=== PATIENT | male | born 1965 | race Caucasian/White ===

== ENCOUNTER 2018-02-02 15:19 | Emergency (ER) | payer MEDICAID, SELFPAY ==
[2018-02-02 15:20] VITALS: BP 128/72; PULSE 82; RESP 16; TEMP 36.7; O2SAT 100
--- NOTE | 2018-02-02 15:44 | W.ED.GENAD ---
Discharge Plan Disposition Patient Disposition: HOME Condition: Stable Discharge Details Chief Complaint: Cellulitis Clinical Impression: Diabetic infection of right foot Primary Care Provider: Liz Birmingham ED Provider: Raymond Chow Home Meds and New Rx's Prescriptions: New amoxicillin-pot clavulanate [Augmentin] 875-125 mg tablet 1 tab PO BID 14 Days Qty: 28 RF: 0 Continue aspirin [Aspirin Low Dose] 81 MG tablet,delayed release (DR/EC) 1 tab PO DAILY RF: 0 blood sugar diagnostic [OneTouch Ultra Test] 1 EACH strip 1 strip Miscellaneous 6-8XDAILY Qty: 600 RF: 0 insulin aspart U-100 [Novolog Flexpen U-100 Insulin] 100 UNIT/1 ML insulin pen SQ DIRECTED Qty: 5 RF: 12 insulin glargine [Lantus U-100 Insulin] 100 UNIT/1 ML solution 80 unit SQ HS Qty: 8 RF: 12 sulfamethoxazole-trimethoprim [Bactrim] 400-80 mg Tablet 1 tab PO BID 14 Days Qty: 28 RF: 0 metformin [Glucophage] 1,000 MG tablet 1 tab PO DAILY Qty: 180 RF: 4 pen needle, diabetic 1 EACH needle 1 ea Sub-Q 8X/DAILY Qty: 300 RF: 12 insulin syringe-needle U-100 [BD Insulin Syringe] 1 EACH syringe 1 ea Sub-Q HS Qty: 200 RF: 0 Discharge Instructions Instructions: Diabetic Foot Ulcers (ED) Discharge Data Discharge Physician: Raymond Chwo Medical Decision Making MDM Narrative Medical decision making narrative: 52 yo male with hx of T2DM comes in with right foot rash. He states it started a week or so ago and was but on bactrim at [facility]. He wasn't taking his diabetes meds for months prior to this and was represcribed lantus by [facility]. He was going to see his pcp today but states he was 15 minutes late and they wouldn't see him and so he was referred here for eval of his foot. Denies pain or fevers. He has ulcers with 2cm surrounding ertyeham, no tunneling or deep ulcers so doubt osteo at this time. I am going to add him on augmentin and continue his bactrim, and gave return precautions. I will prescribe his lantus and metformin for 2 weeks and will have him placed on our f/u list to see his pcp. I educated importance of taking his meds as prescribed as if he continues to have uncontrolled DM he could lose his feet Differential Diagnosis diabetic foot infection, om, cellulitis HPI General Mode of arrival: ambulatory. Date/Time Provider Initiated Documentation: 02/02/18 15:28. Limitations to Documentation: no limitations. Information obtained by: patient. History of Present Illness 52 year old M presents to the emergency department with the chief complaint of right foot redness, described as moderate, with intensity rated at 4. Quality is described as aching, and is localized to the right and lower extremity. Patient reports no radiation. Patient started experiencing this week(s) (1) and it has been constant. No relieving factors improve symptom(s), No exacerbating factors reported . Patient notes no other symptoms.. Patient did receive the following treatments prior to arrival, none and other (bactrim) Related Data Home Medications Medication Instructions Recorded Confirmed aspirin [Aspirin Low Dose] 1 tab PO DAILY tab 09/04/12 02/02/18 blood sugar diagnostic [OneTouch #600 strip 12/25/13 Ultra Test] insulin aspart U-100 [Novolog 0 SQ DIRECTED #5 pen 09/29/16 Flexpen U-100 Insulin] Previous Rx's Medication Instructions Recorded amoxicillin-pot clavulanate 1 tab PO BID 14 Days #28 tab 02/02/18 [Augmentin] insulin glargine [Lantus U-100 80 unit SQ HS #8 vial 02/02/18 Insulin] insulin syringe-needle U-100 [BD #200 syringe NS 02/02/18 Insulin Syringe] metformin [Glucophage] 1 tab PO DAILY #180 tab 02/02/18 pen needle, diabetic #300 pkg NS 02/02/18 sulfamethoxazole-trimethoprim 1 tab PO BID 14 Days #28 tab NS 02/02/18 [Bactrim] Allergies Allergy/AdvReac Type Severity Reaction Status Date / Time No Known Allergies Allergy Unverified 08/15/17 20:07 General Stated Complaint: Cellulitis BRIAN: 3 Review of Systems Review of Systems All systems reviewed & are unremarkable except as noted in HPI and below Constitutional Denies chills, Denies fever(s) and Denies weakness Eyes Patient Denies loss of vision ENT Denies change in voice Cardiovascular Denies chest pain and Denies dyspnea Respiratory Denies dyspnea Gastrointestinal Denies abdominal pain, Denies nausea and Denies vomiting Genitourinary Denies dysuria Musculoskeletal Denies joint swelling Integumentary/Breasts Reports rash Neurologic Denies loss of vision and Denies weakness Psychiatric Denies depression Endocrine Denies cold intolerance and Denies heat intolerance Allergic/Immunologic Reports urticaria PFSH Social History Smoking/Tobacco Use Status: Former Tobacco Use how long ago did patient quit smokin10/15/13- QUIT 12 YRS AGO Surgical History Arthroplasty of knee Repair of umbilical hernia Exam Const General: no acute distress Orientation: alert HENMT Head: normal to inspection Ears: external ears normal General nose exam: external nose normal Mouth: moist mucous membranes Eyes General: appearance normal, both eyes and all related structures Neck Neck: normal visual inspection Resp Effort & Inspection: normal respiratory effort and able to speak in complete sentences Cardio Rate: regular rate Skin General skin exam: no rashes or lesions noted Neuro General: alert and oriented x3 Extrem General: full ROM, normal capillary refill and other (3 superficial ulcers, one on the plantar surface 1cm in diameter, and several smaller ones on toes II-VII, no tunneling or bone felt on probe test) Psych Mental Status: mental status grossly normal Course Vital Signs Temperature 36.7 C 02/02/18 15:20 Pulse 82 02/02/18 15:20 Respiratory Rate 16 02/02/18 15:20 Blood Pressure 128/72 02/02/18 15:20 Pulse Oximetry 100 02/02/18 15:20 Temperature 36.7 C 02/02/18 15:20 Pulse 82 02/02/18 15:20 Respiratory Rate 16 02/02/18 15:20 Blood Pressure 128/72 02/02/18 15:20 Pulse Oximetry 100 02/02/18 15:20
--- NOTE | 2018-02-02 15:49 | ED.GENADUL_ITS ---
Discharge Plan Disposition Patient Disposition: HOME Condition: Stable Discharge Details Chief Complaint: Cellulitis Clinical Impression: Diabetic infection of right foot Primary Care Provider: Liz Birmingham ED Provider: Raymond Chow Home Meds and New Rx's Prescriptions: New amoxicillin-pot clavulanate [Augmentin] 875-125 mg tablet 1 tab PO BID 14 Days Qty: 28 RF: 0 Continue aspirin [Aspirin Low Dose] 81 MG tablet,delayed release (DR/EC) 1 tab PO DAILY RF: 0 blood sugar diagnostic [OneTouch Ultra Test] 1 EACH strip 1 strip Miscellaneous 6-8XDAILY Qty: 600 RF: 0 insulin aspart U-100 [Novolog Flexpen U-100 Insulin] 100 UNIT/1 ML insulin pen SQ DIRECTED Qty: 5 RF: 12 insulin glargine [Lantus U-100 Insulin] 100 UNIT/1 ML solution 80 unit SQ HS Qty: 8 RF: 12 sulfamethoxazole-trimethoprim [Bactrim] 400-80 mg Tablet 1 tab PO BID 14 Days Qty: 28 RF: 0 metformin [Glucophage] 1,000 MG tablet 1 tab PO DAILY Qty: 180 RF: 4 pen needle, diabetic 1 EACH needle 1 ea Sub-Q 8X/DAILY Qty: 300 RF: 12 insulin syringe-needle U-100 [BD Insulin Syringe] 1 EACH syringe 1 ea Sub-Q HS Qty: 200 RF: 0 Discharge Instructions Instructions: Diabetic Foot Ulcers (ED) Discharge Data Discharge Physician: Raymond Chow Medical Decision Making MDM Narrative Medical decision making narrative: 52 yo male with hx of T2DM comes in with right foot rash. He states it started a week or so ago and was but on bactrim at [facility]. He wasn't taking his diabetes meds for months prior to this and was represcribed lantus by [facility]. He was going to see his pcp today but states he was 15 minutes late and they wouldn't see him and so he was referred here for eval of his foot. Denies pain or fevers. He has ulcers with 2cm surrounding ertyeham, no tunneling or deep ulcers so doubt osteo at this time. I am going to add him on augmentin and continue his bactrim, and gave return precautions. I will prescribe his lantus and metformin for 2 weeks and will have him placed on our f/u list to see his pcp. I educated importance of taking his meds as prescribed as if he continues to have uncontrolled DM he could lose his feet Differential Diagnosis diabetic foot infection, om, cellulitis HPI General Mode of arrival: ambulatory . Date/Time Provider Initiated Documentation: 02/02/18 15:28 . Limitations to Documentation: no limitations . Information obtained by: patient . History of Present Illness 52 year old M presents to the emergency department with the chief complaint of right foot redness, described as moderate, with intensity rated at 4. Quality is described as aching, and is localized to the right and lower extremity. Patient reports no radiation. Patient started experiencing this week(s) (1) and it has been constant. No relieving factors improve symptom(s ), No exacerbating factors reported . Patient notes no other symptoms.. Patient did receive the following treatments prior to arrival, none and other ( bactrim) Related Data Home Medications Medication Instructions Recorded Confirmed aspirin [Aspirin Low Dose] 1 tab PO DAILY tab 09/04/12 02/02/18 blood sugar diagnostic [OneTouch #600 strip 12/25/13 Ultra Test] insulin aspart U-100 [Novolog 0 SQ DIRECTED #5 pen 09/29/16 Flexpen U-100 Insulin] Previous Rx's Medication Instructions Recorded amoxicillin-pot clavulanate 1 tab PO BID 14 Days #28 tab 02/02/18 [Augmentin] insulin glargine [Lantus U-100 80 unit SQ HS #8 vial 02/02/18 Insulin] insulin syringe-needle U-100 [BD #200 syringe NS 02/02/18 Insulin Syringe] metformin [Glucophage] 1 tab PO DAILY #180 tab 02/02/18 pen needle, diabetic #300 pkg NS 02/02/18 sulfamethoxazole-trimethoprim 1 tab PO BID 14 Days #28 tab NS 02/02/18 [Bactrim] Allergies Allergy/AdvReac Type Severity Reaction Status Date / Time No Known Allergies Allergy Unverified 08/15/17 20:07 General Stated Complaint: Cellulitis BRIAN: 3 Review of Systems Review of Systems All systems reviewed & are unremarkable except as noted in HPI and below Constitutional Denies chills, Denies fever(s) and Denies weakness Eyes Patient Denies loss of vision ENT Denies change in voice Cardiovascular Denies chest pain and Denies dyspnea Respiratory Denies dyspnea Gastrointestinal Denies abdominal pain, Denies nausea and Denies vomiting Genitourinary Denies dysuria Musculoskeletal Denies joint swelling Integumentary/Breasts Reports rash Neurologic Denies loss of vision and Denies weakness Psychiatric Denies depression Endocrine Denies cold intolerance and Denies heat intolerance Allergic/Immunologic Reports urticaria PFSH Social History Smoking/Tobacco Use Status: Former Tobacco Use how long ago did patient quit smokin10/15/13- QUIT 12 YRS AGO Surgical History Arthroplasty of knee Repair of umbilical hernia Exam Const General: no acute distress Orientation: alert HENMT Head: normal to inspection Ears: external ears normal General nose exam: external nose normal Mouth: moist mucous membranes Eyes General: appearance normal, both eyes and all related structures Neck Neck: normal visual inspection Resp Effort & Inspection: normal respiratory effort and able to speak in complete sentences Cardio Rate: regular rate Skin General skin exam: no rashes or lesions noted Neuro General: alert and oriented x3 Extrem General: full ROM, normal capillary refill and other (3 superficial ulcers, one on the plantar surface 1cm in diameter, and several smaller ones on toes II-VII , no tunneling or bone felt on probe test) Psych Mental Status: mental status grossly normal Course Vital Signs Temperature 36.7 C 02/02/18 15:20 Pulse 82 02/02/18 15:20 Respiratory Rate 16 02/02/18 15:20 Blood Pressure 128/72 02/02/18 15:20 Pulse Oximetry 100 02/02/18 15:20 Temperature 36.7 C 02/02/18 15:20 Pulse 82 02/02/18 15:20 Respiratory Rate 16 02/02/18 15:20 Blood Pressure 128/72 02/02/18 15:20 Pulse Oximetry 100 02/02/18 15:20
[2018-02-02 16:06] VITALS: BP 128/80; PULSE 88; RESP 18; TEMP 36.8; O2SAT 99
--- NOTE | 2018-02-03 08:49 | PDOC.ERCMPRO ---
Care Management Progress Note 02/03/18-Pt seen on 02/02/18 for diabetic right foot infection by Dr. Stone Chow. Referral faxed to [facility] as Dr. Tereza Birmingham is Pt's PCP for f/u within one week.
== END 2018-02-02 16:05 | disposition home or self-care (01) ==
LOC: ER 16:02
PROVIDERS: Emergency Provider Emergency Medicine; PCP Family Medicine
DX: E11.621 Type 2 diabetes mellitus with foot ulcer; Z79.4 Long term (current) use of insulin
CPT/HCPCS: 99283

== ENCOUNTER 2018-02-06 12:52 | Inpatient (IN) | payer MEDICAID, SELFPAY ==
[2018-02-06 12:59] VITALS: BP 132/80; PULSE 89; RESP 18; O2SAT 98
[2018-02-06 13:59] LABS: Abs Immature Grans 0.02 k/cumm (0.0-0.09); Absolute Basophil Count 0.02 k/cumm (0.0-0.2); Absolute Eosinophil Count 0.15 k/cumm (0.0-0.7); Absolute Lymphocyte Count 1.42 k/cumm (1.2-3.4); Absolute Monocyte Count 0.53 k/cumm (0.11-0.7); Absolute Neutrophil Count 4.03 k/cumm (1.2-6.7); Basophils % 0.3; Eosinophils % 2.4; HCT 40.9 % (40.0-50.0); HGB 14.5 g/dL (13.5-17.5); Immature Grans % 0.3; Mean Corp. HGB Concentration 35.5 g/dL (32.0-36.0); Mean Corpuscular Hemoglobin 31.7 pg (27.0-33.0); Mean Corpuscular Volume 89.5 fL (80-95); Mean Platelet Volume 9.9 fL (8.0-11.0); Monocytes % 8.6; Neutrophils % 65.4; Platelet Count 191 x1000/uL (130-400); RBC 4.57 m/cumm (4.50-6.00); RBC Distribution Width 12.4 % (11.8-14.1); White Blood Cell Count 6.17 k/cumm (4.4-10.8)
[2018-02-06 14:16] LABS: ALT 24 U/L (12-78); AST 10 U/L (15-37); Albumin 3.4 g/dL (3.4-5.0); Alkaline Phosphatase 186 U/L (46-116); Anion Gap 8.5 mmol/L (3-11); BUN 13 mg/dL (7-18); Bilirubin, Total 0.4 mg/dL (0.2-1.0); CO2 29.5 mmol/L (21.0-32.0); CREATININE 0.72 mg/dL (0.70-1.30); Calcium 9.5 mg/dL (8.5-10.1); Chloride 99 mmol/L (98-107); Glucose 335 mg/dL (70-100); Potassium 4.2 mmol/L (3.5-5.1); Sodium 137 mmol/L (136-145); Total Protein 7.3 g/dL (6.4-8.2)
[2018-02-06] MEDS: MEROPENEM 1 GM in Normal Saline 100 ML IVPB (15:14)
--- NOTE | 2018-02-06 15:15 | NUR.NOTE ---
Dorsalis pedis and posterior tibial pulses intact with Doppler. ED provider notified Nursing Note:
--- NOTE | 2018-02-06 15:26 | DI.RAD_ITS ---
SYMPTOMS/DIAGNOSIS: NECROTIC TOES, EVALUATE FOR OSTEOMYELITIS LEFT FOOT: Two views. No destructive or erosive changes are seen in the toes to suggest osteomyelitis. The bones are intact. No acute fracture or dislocation is seen. The joint spaces appear fairly well maintained. Vascular calcifications are seen in the soft tissues. No radiopaque foreign bodies are seen. There does appear to be soft tissue swelling of the forefoot. IMPRESSION: No radiographic evidence to suggest osteomyelitis. Followup as clinically appropriate.
--- NOTE | 2018-02-06 15:35 | ED.GENADUL_ITS ---
Discharge Plan Disposition Patient Disposition: [facility] INPATIENT Discharge Details Chief Complaint: Cellulitis Clinical Impression: Diabetic foot infection Reason For Visit: DIABETIC FOOT INFECTION Admit Date/Time: 02/06/18 15:50 Admit Provider: Augustine Rogers Attending Provider: Augustine Rogers Primary Care Provider: Liz Birmingham ED Provider: Taylor Greene Discharge Data Discharge Date/Time-TO BE ENTERED AT DEPARTURE: 02/06/18 17:06 Medical Decision Making Lena Kramer is a 52 y/o man with history of insulin-dependent diabetes presenting to the emergency department with several weeks of wounds to his left toes worsening despite outpatient antibiotics on Bactrim and Augmentin. On exam patient is overall well and nontoxic-appearing with chronic wounds with necrosis to the left toes 2 through 4. Pulses of the left foot are dopplerable , and the foot is warm and well perfused. Exam/history not consistent with necrotizing fasciitis, sepsis. Concern for possible osteomyelitis and diabetic foot wounds requiring debridement and IV antibiotics. Plan for x-ray, screening labs, IV antibiotics, admission. Clinical Impression: diabetic foot infection Dispostion: [facility] inpatient Medical Records Medical records reviewed: Yes I reviewed the patient's medical records. Imaging Data Radiologic Study: Attestation: I personally reviewed and interpreted this imaging study as follows: Radiologist's impression: LEFT FOOT: Two views. No destructive or erosive changes are seen in the toes to suggest osteomyelitis. The bones are intact. No acute fracture or dislocation is seen. The joint spaces appear fairly well maintained. Vascular calcifications are seen in the soft tissues. No radiopaque foreign bodies are seen. There does appear to be soft tissue swelling of the forefoot. IMPRESSION: No radiographic evidence to suggest osteomyelitis. Followup as clinically appropriate. Lab Data Lab results reviewed: Yes I reviewed the patient's lab results. HPI General Mode of arrival: ambulatory . Date/Time Provider Initiated Documentation: 02/06/18 13:22 . Limitations to Documentation: no limitations . Information obtained by: patient, RN notes reviewed and old records reviewed . HPI Narrative: Lena Kramer is a 52-year-old man with a history of insulin dependent diabetes presenting to the emergency department with diabetic ulcers to the toes. Patient reports that he noticed skin changes 2-3 weeks ago of his left toes. He was started on Bactrim as an outpatient for this. On 02/02/18 he was seen here in the emergency department for progression of the skin lesions, and was switched from Bactrim to Augmentin. Patient was seen by his PCP today who noticed that wounds have continued to progress despite outpatient treatment , and he was sent to the emergency department. Patient notes that he has minimal sensation of the area at baseline, but does have some pain in the 3 toes that are affected. He reports that he has felt more tired over the past few weeks but otherwise denies any systemic symptoms. No other pain, no fever, no nausea/vomiting/diarrhea, no rash, no shortness of breath, no cough. Normal appetite. No recent travel. Related Data Home Medications Medication Instructions Recorded Confirmed aspirin [Aspirin Low Dose] 1 tab PO DAILY tab 09/04/12 02/06/18 blood sugar diagnostic [OneTouch #600 strip 12/25/13 02/06/18 Ultra Test] insulin aspart U-100 [Novolog 0 SQ DIRECTED #5 pen 09/29/16 02/06/18 Flexpen U-100 Insulin] amoxicillin-pot clavulanate 1 tab PO BID 14 Days #28 tab 02/02/18 02/06/18 [Augmentin] insulin glargine [Lantus U-100 80 unit SQ HS #8 vial 02/02/18 02/06/18 Insulin] insulin syringe-needle U-100 [BD #200 syringe NS 02/02/18 02/06/18 Insulin Syringe] metformin [Glucophage] 1 tab PO DAILY #180 tab 02/02/18 02/06/18 pen needle, diabetic #300 pkg NS 02/02/18 02/06/18 sulfamethoxazole-trimethoprim 1 tab PO BID 14 Days #28 tab NS 02/02/18 02/06/18 [Bactrim] Previous Rx's Medication Instructions Recorded amoxicillin-pot clavulanate 1 tab PO BID 14 Days #28 tab 02/02/18 [Augmentin] insulin glargine [Lantus U-100 80 unit SQ HS #8 vial 02/02/18 Insulin] insulin syringe-needle U-100 [BD #200 syringe NS 02/02/18 Insulin Syringe] metformin [Glucophage] 1 tab PO DAILY #180 tab 02/02/18 pen needle, diabetic #300 pkg NS 02/02/18 sulfamethoxazole-trimethoprim 1 tab PO BID 14 Days #28 tab NS 02/02/18 [Bactrim] Allergies Allergy/AdvReac Type Severity Reaction Status Date / Time No Known Allergies Allergy Unverified 08/15/17 20:07 General Stated Complaint: Cellulitis BRIAN: 3 Review of Systems Review of Systems Constitutional: denies fevers Eyes: denies eye pain ENT: denies facial pain, dental pain, sore throat Cardiovascular: denies chest pain, edema Respiratory: denies SOB, cough GI: denies abdominal pain, vomiting, diarrhea : denies flank pain MSK: denies back pain, neck pain, arthralgias, myalgias Skin: denies rash, reports skin changes left toes Neuro: denies headaches, weakness Exam Narrative Exam Narrative: Constitutional: well and [id number], pleasant, conversing normally HENT: head atraumatic, normocephalic normal inspection, mucous membranes moist Eyes: conjunctiva normal, sclera normal, pupils 3mm b/l Neck: no stridor, normal ROM, trachea midline Chest: normal inspection Resp: normal work of breathing Cardio: normal rate, normal rhythm. Pulses dopplerable left foot, left foot is warm and well perfused Skin: warm, dry, normal color, no rash, left toes 2 through 4 with non-draining chronic wounds some areas of necrosis and 3-4 cm of erythema in the distal dorsal foot Neuro: alert, not altered, grossly non-focal, normal tone Ext: no edema Psych: normal mood, normal affect, normal behavior Course Vital Signs Pulse 89 02/06/18 12:59 Respiratory Rate 18 02/06/18 12:59 Blood Pressure 132/80 02/06/18 12:59 Pulse Oximetry 98 02/06/18 12:59 Temperature Source Temporal Artery Scan 02/06/18 12:59 Pulse 89 02/06/18 12:59 Respiratory Rate 18 02/06/18 12:59 Blood Pressure 132/80 02/06/18 12:59 Blood Pressure Position Sitting 02/06/18 12:59 Pulse Oximetry 98 02/06/18 12:59 Oxygen Delivery Method Room Air 02/06/18 12:59 Oxygen Flow Rate 0 02/06/18 12:59 Lab/Test Results Lab/Test Results: 02/06/18 14:55 Blood Blood Culture - Pending 02/06/18 13:47 Blood Blood Culture - Pending Laboratory Tests Range/Units 02/06/18 02/06/18 13:47 13:47 WBC (4.4-10.8) k/cumm 6.17 RBC (4.50-6.00) m/cumm 4.57 Hgb (13.5-17.5) g/dL 14.5 Hct (40.0-50.0) % 40.9 MCV (80-95) fL 89.5 MCH (27.0-33.0) pg 31.7 MCHC (32.0-36.0) g/dL 35.5 RDW (11.8-14.1) % 12.4 Plt Count (130-400) x1000/uL 191 MPV (8.0-11.0) fL 9.9 Immature Gran % 0.3 Neutrophils % 65.4 Lymphocytes % 23.0 Monocytes % 8.6 Eosinophils % 2.4 Basophils % 0.3 Absolute Neutrophils (1.2-6.7) k/cumm 4.03 Absolute Lymphocytes (1.2-3.4) k/cumm 1.42 Absolute Monocytes (0.11-0.7) k/cumm 0.53 Absolute Eosinophils (0.0-0.7) k/cumm 0.15 Absolute Basophils (0.0-0.2) k/cumm 0.02 Sodium (136-145) mmol/L 137 Potassium (3.5-5.1) mmol/L 4.2 Chloride (98-107) mmol/L 99 Carbon Dioxide (21.0-32.0) mmol/L 29.5 Anion Gap (3-11) mmol/L 8.5 BUN (7-18) mg/dL 13 Creatinine (0.70-1.30) mg/dL 0.72 Estimated GFR/1.73 m2 (mL/min/1.73m2) >= 60.00 Glucose (70-100) mg/dL 335 H Calcium (8.5-10.1) mg/dL 9.5 Total Bilirubin (0.2-1.0) mg/dL 0.4 AST (15-37) U/L 10 L ALT (12-78) U/L 24 Alkaline Phosphatase (46-116) U/L 186 H Total Protein (6.4-8.2) g/dL 7.3 Albumin (3.4-5.0) g/dL 3.4
--- NOTE | 2018-02-06 16:07 | HPE_ITS ---
Date of service: 02/06/18 Time of Service: 16:06 History of Present Illness Chief Complaint: Diabetic left foot ulceration Narrative: Lena is a 52-year-old gentleman with past medical history significant for insulin-dependent type 2 diabetes, hypertension, hyperlipidemia who presents to the emergency department today at [facility] with concerns regarding left foot infection. Symptoms began approximately 2 weeks ago when he noticed a blister to the great toe on the left foot. This is not particularly uncommon for him to develop blisters that then burst followed by prolonged healing. He frequently wears socks to bed and covered the blister with a piece of gauze. The following morning he took his time getting ready as he did not have to be at work until later that afternoon. Around noon time he removed his socks to take a shower and noticed that several blisters have erupted over the remaining toes on the left foot. He proceeded to go to work and on his way home stopped at [facility] where he was prescribed Bactrim. She took the Bactrim as prescribed, however on February 02, 2018 presented to the emergency department at [facility] with concerns regarding ongoing infection. He was prescribed Augmentin in addition to Bactrim. Additionally his diabetes medications had run out and he had no more refills, so Dr. Mujica he in the emergency room gave him a couple of weeks worth of medication. He has continued to take oral antibiotics as prescribed, however has not noticed any improvement in his left foot. Narrative: Lena is a 52-year-old gentleman with past medical history significant for insulin-dependent type 2 diabetes, hypertension, hyperlipidemia who presents to the emergency department today at [facility] with concerns regarding left foot infection. Symptoms began approximately 2 weeks ago when he noticed a blister to the great toe on the left foot. This is not particularly uncommon for him to develop blisters that then burst followed by prolonged healing. He frequently wears socks to bed and covered the blister with a piece of gauze. The following morning he took his time getting ready as he did not have to be at work until later that afternoon. Around noon time he removed his socks to take a shower and noticed that several blisters have erupted over the remaining toes on the left foot. He proceeded to go to work and on his way home stopped at [facility] where he was prescribed Bactrim. She took the Bactrim as prescribed, however on February 02, 2018 presented to the emergency department at [facility] with concerns regarding ongoing infection. He was prescribed Augmentin in addition to Bactrim. Additionally his diabetes medications had run out and he had no more refills, so Dr. Guanako dietz in the emergency room gave him a couple of weeks worth of medication. He has continued to take oral antibiotics as prescribed, however has not noticed any improvement in his left foot. Meds Home Medications Medication Instructions Recorded Confirmed Type aspirin [Aspirin Low Dose] 1 tab PO DAILY tab 09/04/12 02/06/18 History blood sugar diagnostic [OneTouch #600 strip 12/25/13 02/06/18 History Ultra Test] insulin aspart U-100 [Novolog 0 SQ DIRECTED #5 pen 09/29/16 02/06/18 History Flexpen U-100 Insulin] amoxicillin-pot clavulanate 1 tab PO BID 14 Days #28 tab 02/02/18 02/06/18 Rx [Augmentin] insulin glargine [Lantus U-100 80 unit SQ HS #8 vial 02/02/18 02/06/18 Rx Insulin] insulin syringe-needle U-100 [BD #200 syringe NS 02/02/18 02/06/18 Rx Insulin Syringe] metformin [Glucophage] 1 tab PO DAILY #180 tab 02/02/18 02/06/18 Rx pen needle, diabetic #300 pkg NS 02/02/18 02/06/18 Rx sulfamethoxazole-trimethoprim 1 tab PO BID 14 Days #28 tab NS 02/02/18 02/06/18 Rx [Bactrim] Allergies Allergy/AdvReac Type Severity Reaction Status Date / Time No Known Allergies Allergy Unverified 08/15/17 20:07 Results Labs : 02/06/18 13:47 02/06/18 13:47 Laboratory Results - last 24 hr 02/06/18 02/06/18 13:47 13:47 WBC 6.17 RBC 4.57 Hgb 14.5 Hct 40.9 MCV 89.5 MCH 31.7 MCHC 35.5 RDW 12.4 Plt Count 191 MPV 9.9 Immature Gran % 0.3 Neutrophils % 65.4 Lymphocytes % 23.0 Monocytes % 8.6 Eosinophils % 2.4 Basophils % 0.3 Absolute Neutrophils 4.03 Absolute Lymphocytes 1.42 Absolute Monocytes 0.53 Absolute Eosinophils 0.15 Absolute Basophils 0.02 Sodium 137 Potassium 4.2 Chloride 99 Carbon Dioxide 29.5 Anion Gap 8.5 BUN 13 Creatinine 0.72 Estimated GFR/1.73 m2 >= 60.00 Glucose 335 H Calcium 9.5 Total Bilirubin 0.4 AST 10 L ALT 24 Alkaline Phosphatase 186 H Total Protein 7.3 Albumin 3.4
[2018-02-06] MEDS: VANCOMYCIN 2,000 MG in Normal Saline 500 ML 250 MG IVPB (16:15)
[2018-02-06 16:40] VITALS: TEMP 36.7
[2018-02-06 17:00] VITALS: BP 137/82; PULSE 72; RESP 18; TEMP 36; O2SAT 98
--- NOTE | 2018-02-06 17:04 | HPE_ITS ---
Date of service: 02/06/18 Time of Service: 16:52 Assessment and Plan (1) Diabetic ulcer of left foot: Current visit: Yes Status: Acute Failed outpatient treatment with Bactrim and Augmentin. There are several areas of necrosis which will likely require surgical debridement. Podiatry consult. Will initiate IV antibiotics with meropenem and IV vancomycin , pharmacy to dose. Blood cultures pending. Repeat blood work in the morning. (2) Insulin dependent diabetes mellitus: Current visit: Yes Status: Chronic Diabetic diet. Continue Lantus 80 units subcu at at bedtime in addition to sliding scale NovoLog for meal coverage. Order placed for para educator. Poor compliance in recent months due to multiple missed appointments. (3) Hypertension: Current visit: Yes Status: Chronic Reportedly on lisinopril in the past, however this is not on his medication reconciliation. He would benefit from an TSERING inhibitor in terms of renal protection, however will hold off on reordering until we can verify his current medications (4) DVT prophylaxis: Current visit: Yes Status: Acute SC Lovenox History of Present Illness Chief Complaint: Left diabetic foot ulceration Narrative: Lena is a 52-year-old gentleman with past medical history significant for insulin-dependent type 2 diabetes, hypertension, hyperlipidemia who presents to the emergency department today at [facility] with concerns regarding left foot infection. Symptoms began approximately 2 weeks ago when he noticed a blister to the great toe on the left foot. This is not particularly uncommon for him to develop blisters that then burst followed by prolonged healing. He frequently wears socks to bed and covered the blister with a piece of gauze. The following morning he took his time getting ready as he did not have to be at work until later that afternoon. Around noon time he removed his socks to take a shower and noticed that several blisters have erupted over the remaining toes on the left foot. He proceeded to go to work and on his way home stopped [place] [facility] [place] where he was prescribed Bactrim. She took the Bactrim as prescribed, however on February 02, 2018 presented to the emergency department at [facility] with concerns regarding ongoing infection. He was prescribed Augmentin in addition to Bactrim. Additionally his diabetes medications had run out and he had no more refills, so Dr. Mujica he in the emergency room gave him a couple of weeks worth of medication. He has continued to take oral antibiotics as prescribed, however has not noticed any improvement in his left foot. He followed up with his primary care provider today in the office who recommended he be evaluated in the emergency department In the emergency department workup was essentially normal. There was no leukocytosis or evidence of left shift. Electrolytes and renal function remain normal. CMP was notable for hyperglycemia and slightly elevated alkaline phosphatase. X-ray of the left foot did not suggest osteomyelitis Review of Systems Review of Systems 10 point ROS obtained with pertinent positives noted in HPI, otherwise negative. PFSH Family History Mother Osteoporosis Father Diabetes Brother Healthy adult male Sister Ovarian tumor Daughter Chronic pain Son Palate abnormality Medical History Hyperlipidemia (Acute) Hypertension (Chronic) Insulin dependent diabetes mellitus (Chronic) Social History Smoking/Tobacco Use Status: Former Tobacco Use how long ago did patient quit smokin10/15/13- QUIT 12 YRS AGO Surgical History Arthroplasty of knee Repair of umbilical hernia Meds Home Medications Medication Instructions Recorded Confirmed Type aspirin [Aspirin Low Dose] 1 tab PO DAILY tab 09/04/12 02/06/18 History blood sugar diagnostic [OneTouch #600 strip 12/25/13 02/06/18 History Ultra Test] insulin aspart U-100 [Novolog 0 SQ DIRECTED #5 pen 09/29/16 02/06/18 History Flexpen U-100 Insulin] amoxicillin-pot clavulanate 1 tab PO BID 14 Days #28 tab 02/02/18 02/06/18 Rx [Augmentin] insulin glargine [Lantus U-100 80 unit SQ HS #8 vial 02/02/18 02/06/18 Rx Insulin] insulin syringe-needle U-100 [BD #200 syringe NS 02/02/18 02/06/18 Rx Insulin Syringe] metformin [Glucophage] 1 tab PO DAILY #180 tab 02/02/18 02/06/18 Rx pen needle, diabetic #300 pkg NS 02/02/18 02/06/18 Rx sulfamethoxazole-trimethoprim 1 tab PO BID 14 Days #28 tab NS 02/02/18 02/06/18 Rx [Bactrim] Allergies Allergy/AdvReac Type Severity Reaction Status Date / Time No Known Allergies Allergy Unverified 08/15/17 20:07 Exam Narrative Exam Narrative: General: 52 yo overweight male. Well developed and well nourished. No acute distress. A/Ox3. Pleasant and cooperative. HEENT: Normocephalic, Atraumatic. Conjunctiva clear, sclera non-icteric. PERRL. EOMI. Moist mucous membranes, oropharynx clear. Neck supple, no JVD, thyromegaly or lymphadenopathy. Cardiovascular: Regular rate and rhythm, S1S2, no S3 or S4. No murmur, rub, gallop. Respiratory: Chest expansion symmetrical, respirations unlabored. Lungs clear to auscultation, no adventitious breath sounds. GI: Abdomen round, soft, non-tender to palpation. Normoactive bowel sounds in all 4 quadrants. No hepatosplenomegaly or prominent masses. : deferred Extremities: Lower extremities without edema. L foot with non-draining chronic wounds with areas of necrosis on toes 2-5. Ulcerations vary in diameter from 1cm to roughly 5 cm with surrounding erythema. Non-palpable DP, PT pulse but strong doppler signal. Both LE are warm, dry, sensation intact. Neurological: non-focal. CN 2-12 grossly intact. Psychiatric: pleasant and cooperative. Speech clear and articulate. Mood and affect normal. Results Labs : 02/06/18 13:47 02/06/18 13:47 Laboratory Results - last 24 hr 02/06/18 02/06/18 13:47 13:47 WBC 6.17 RBC 4.57 Hgb 14.5 Hct 40.9 MCV 89.5 MCH 31.7 MCHC 35.5 RDW 12.4 Plt Count 191 MPV 9.9 Immature Gran % 0.3 Neutrophils % 65.4 Lymphocytes % 23.0 Monocytes % 8.6 Eosinophils % 2.4 Basophils % 0.3 Absolute Neutrophils 4.03 Absolute Lymphocytes 1.42 Absolute Monocytes 0.53 Absolute Eosinophils 0.15 Absolute Basophils 0.02 Sodium 137 Potassium 4.2 Chloride 99 Carbon Dioxide 29.5 Anion Gap 8.5 BUN 13 Creatinine 0.72 Estimated GFR/1.73 m2 >= 60.00 Glucose 335 H Calcium 9.5 Total Bilirubin 0.4 AST 10 L ALT 24 Alkaline Phosphatase 186 H Total Protein 7.3 Albumin 3.4
[2018-02-06] MEDS: Enoxaparin 40 MG/0.4 ML SYR SC (17:30)
[2018-02-06] MEDS: Insulin Aspart 300 UNITS/3 ML PEN SC (17:32)
[2018-02-06] MEDS: Normal Saline Flush 10 ML SYR ×2 (18:44→23:42)
[2018-02-06] MEDS: VANCOMYCIN 1,250 MG in Normal Saline 250 ML 250 MG IV (23:42)
[2018-02-07] VITALS: BP 113/71; PULSE 60; RESP 16; TEMP 36.3; O2SAT 98
[2018-02-07] MEDS: Normal Saline Flush 10 ML SYR (04:40)
[2018-02-07] MEDS: MEROPENEM 1 GM in Normal Saline 100 ML IVPB ×2 (04:41→15:18)
[2018-02-07 07:15] VITALS: O2SAT 98
[2018-02-07 07:20] VITALS: BP 107/70; PULSE 65; RESP 18; TEMP 35.9; O2SAT 98
[2018-02-07 07:25] VITALS: BP 107/70; PULSE 65; RESP 18; TEMP 35.9; O2SAT 98
[2018-02-07 07:28] LABS: Abs Immature Grans 0.01 k/cumm (0.0-0.09); Absolute Basophil Count 0.01 k/cumm (0.0-0.2); Absolute Eosinophil Count 0.17 k/cumm (0.0-0.7); Absolute Lymphocyte Count 1.72 k/cumm (1.2-3.4); Absolute Monocyte Count 0.52 k/cumm (0.11-0.7); Absolute Neutrophil Count 3.79 k/cumm (1.2-6.7); Basophils % 0.2; Eosinophils % 2.7; HCT 38.7 % (40.0-50.0); HGB 13.4 g/dL (13.5-17.5); Immature Grans % 0.2; Lymphocytes % 27.7; Mean Corp. HGB Concentration 34.6 g/dL (32.0-36.0); Mean Corpuscular Hemoglobin 31.2 pg (27.0-33.0); Mean Platelet Volume 9.9 fL (8.0-11.0); Monocytes % 8.4; Neutrophils % 60.8; Platelet Count 172 x1000/uL (130-400); RBC Distribution Width 12.6 % (11.8-14.1); White Blood Cell Count 6.22 k/cumm (4.4-10.8)
[2018-02-07] MEDS: VANCOMYCIN 1,250 MG in Normal Saline 250 ML 167 MG IV ×2 (07:40→16:23)
[2018-02-07] MEDS: Aspirin E.C. 81 MG TABEC PO (07:41)
[2018-02-07] MEDS: Normal Saline Flush 10 ML SYR 20 ML ×2 (07:41→15:18)
[2018-02-07 07:43] LABS: Anion Gap 6.3 mmol/L (3-11); BUN 12 mg/dL (7-18); CO2 29.7 mmol/L (21.0-32.0); CREATININE 0.43 mg/dL (0.70-1.30); Calcium 8.5 mg/dL (8.5-10.1); Chloride 104 mmol/L (98-107); Glucose 132 mg/dL (70-100); Potassium 3.4 mmol/L (3.5-5.1); Sodium 140 mmol/L (136-145)
[2018-02-07] MEDS: Insulin Aspart 300 UNITS/3 ML PEN SC ×3 (07:51→17:05)
--- NOTE | 2018-02-07 07:52 | PDOC.CMIN ---
- If Service Date Differs Date of service: 02/07/18 Time of Service: 07:52 Care Management Initial Assess REASON FOR HOSPITALIZATION:: Diabetic foot infection. PAST MEDICAL HISTORY/PAST SURGICAL HISTORY:: Diabetes, hypertension, hyperlipidemia. Surgical hx: Arthroplasty of knee, umbilical hernia repair. PREVIOUS FUNCTIONAL STATUS/SOCIAL/FAMILY SUPPORTS:: Lena resides in his own home in [place] with his , Soumya, and two children; ages 20 and 15. He and Soumya additionally have two adult children who live out of the area. 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 He is independent with his ADLs and transportation and reports that he has no concerns regarding returning home when ready per MD. CURRENT FUNCTIONAL STATUS:: Lena is lying in bed when CM visits this morning. He is engaged in conversation, makes good eye contact and is talkative. Lena reports that two weeks ago his great toe on his left foot developed a non-healing blister and several days later he had two toes on his left foot that looked like little sausages. He went to the ER in [place] at that time and was started on PO abx which did not help, and he then came to the ED at [facility] yesterday. Lena reports that he had missed several appointments with his PCP so had not been able to get refill prescriptions for his insulins and metformin, and as a result is in the predicament at present. Lena denies financial issues which make obtaining his medications difficult, and acknowledges it is his own fault (missing appointments) and not the fault of his PCP. Lena will go to the OR on 02/[address] Bateman. ADVANCE DIRECTIVES:: None on file at [facility]. CODE STATUS:: Full Code INSURANCE COVERAGE / FINANCIAL ISSUES:: Medicaid. CURRENT HOME/COMMUNITY SERVICES/EQUIPMENT:: No current home and community services. No equipment. PRIMARY CARE PHYSICIAN:: Liz Birmingham. POTENTIAL DISCHARGE NEEDS:: Follow up appointment with PCP. PATIENT/FAMILY EDUCATION NEEDS:: Discharge education, any limitations and follow up plan of care. Ask Me Three discussion. ANTICIPATED BARRIERS TO DISCHARGE:: No anticipated barriers to discharge. TRANSPORTATION:: Lena will transport himself via private vehicle. His car is in the parking lot at [facility]. PLAN:: Lena will discharge home when medically ready per MD. Anticipate patient will discharge with no services and follow up with his PCP. CM will continue to offer support to patient, family and care team regarding discharge planning and disposition.
--- NOTE | 2018-02-07 07:55 | INITIAL_ITS ---
- If Service Date Differs Date of service: 02/07/18 Time of Service: 07:52 Care Management Initial Assess REASON FOR HOSPITALIZATION:: Diabetic foot infection. PAST MEDICAL HISTORY/PAST SURGICAL HISTORY:: Diabetes, hypertension, hyperlipidemia. Surgical hx: Arthroplasty of knee, umbilical hernia repair. PREVIOUS FUNCTIONAL STATUS/SOCIAL/FAMILY SUPPORTS:: Lena resides in his own home in [place] with his , Soumya, and two children; ages 20 and 15. He and Soumya additionally have two adult children who live out of the area. 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 He is independent with his ADLs and transportation and reports that he has no concerns regarding returning home when ready per MD. CURRENT FUNCTIONAL STATUS:: Lena is lying in bed when CM visits this morning. He is engaged in conversation, makes good eye contact and is talkative. Lena reports that two weeks ago his great toe on his left foot developed a non- healing blister and several days later he had two toes on his left foot that looked like little sausages. He went to the ER in [place] at that time and was started on PO abx which did not help, and he then came to the ED at [facility] yesterday. Lena reports that he had missed several appointments with his PCP so had not been able to get refill prescriptions for his insulins and metformin, and as a result is in the predicament at present. Lena denies financial issues which make obtaining his medications difficult, and acknowledges it is his own fault (missing appointments) and not the fault of his PCP. Lena will go to the OR on 02/[address] Bateman. ADVANCE DIRECTIVES:: None on file at [facility]. CODE STATUS:: Full Code INSURANCE COVERAGE / FINANCIAL ISSUES:: Medicaid. CURRENT HOME/COMMUNITY SERVICES/EQUIPMENT:: No current home and community services. No equipment. PRIMARY CARE PHYSICIAN:: Liz Birmingham. POTENTIAL DISCHARGE NEEDS:: Follow up appointment with PCP. PATIENT/FAMILY EDUCATION NEEDS:: Discharge education, any limitations and follow up plan of care. Ask Me Three discussion. ANTICIPATED BARRIERS TO DISCHARGE:: No anticipated barriers to discharge. TRANSPORTATION:: Lena will transport himself via private vehicle. His car is in the parking lot at [facility]. PLAN:: Lena will discharge home when medically ready per MD. Anticipate patient will discharge with no services and follow up with his PCP. CM will continue to offer support to patient, family and care team regarding discharge planning and disposition.
[2018-02-07 08:11] LABS: C-Reactive Protein 0.22 mg/dL (0.0-0.3)
[2018-02-07] MEDS: Potassium Chloride 20 MEQ TABCR 40 MEQ PO (09:23)
[2018-02-07] MEDS: Magnesium Oxide 400 MG TAB PO (09:23)
--- NOTE | 2018-02-07 10:06 | DIABASSESS_ITS ---
DESCRIPTION/ASSESSMENT: Appreciate diabetes consult for Mr. Kramer who is hospitalized with a foot infection. No current A1c. BMI 29 No current A1c Blood sugars this hospitalization 257 at admission corrected this morning to 147mg/dl with his usual; 80u Lantus and moderate insulin correction. He states a fasting blood sugar of 147 is excellent for him. He is satisfied with the food so far. Lena explains he does not know his usual blood sugars because he has not been testing. He ran out of his insulin and has difficulty getting it prescribed because he has been unable to get to a provider appointment. He states he is good about checking his feet, and in 2 days he developed an infection that spread to other toes. He is aware this may result in amputations. INTERVENTION/PLAN: Unable to assess meterman glycemic trend without A1c or any glucometer testing. At this time will follow blood sugars for another day to assess trends. Will f/u with self management support. SUGGEST: A1c test
--- NOTE | 2018-02-07 11:15 | PHARADMIT ---
Addendum entered by Lam Mclaughlin III 02/09/18 17:52: Pharmacy Note Subjective Pln was for patient to ransfer to [facility] vascular surgery today. No bed available yet Objective VS-OK Lytes-OK H&H,Plts,WBC-OK SCr- 0.45 No BM yet Assessment Vancomycin continues at 1250mg IV q8hrs Meropenum was dc'd Plan Awaiting bed at [facility] Original Note: Addendum entered by Lam Mclaughlin III 02/08/18 16:21: Pharmacy Note Subjective Patient failed treatment (Bactrim/Augmentin) did a bedside debridement and rec that patient be transferred to [facility] for a vascular workup (poor LE cirrculation. Objective VS-OK K+4.5 Na-134, SCr-0.53 FSBS-302 BG-334 No BM yet Assessment Vancomycin eliane (11.1) RxKinetics calculated dose of 1,500mg IV q6hrs. [facility] discussed this dose with , we agreed to continue at 1250mg IV q8h for now. Meropenum is also ordered (synergy) Insulin dosing adjusted Plan Awaiting word back from [facility], continue present treatment. Original Note: Admission Pharmacy Clinical Review diabetic foot infection Code Status Full Code Current Weight 101.605 kg Renally Cleared and Narrow Therapeutic Index Meds Crcl~124.00 mL/min current meds okay QTc Value / Action Taken BP Control, Fever BP 107/70 afebrile Electrolytes reviewed K+3.4 DVT Prophylaxis enoxaparin Opiate Usage / Scheduled Bowel Regimen Ordered no/prn Plt/SCr for Heparin / Enoxaparin plt 172 SCr 0.43 INR for Warfarin n/a H/H stable, WBC/Bands h/h 13.4/38.7 wbc 6.22 Antibiotic appropriateness vanco and meropenem Cultures and Sensitivities blood cultures pending Surgical ABX d/c within 24 hr n/a DM control / Insulin Dosing BG 132 scheduled glargine and sliding scale aspart Heart Failure (Check EF%) (TSERING's, B-Block, Diuretics) none IV to PO Switch n/a Home Meds Reviewed yes Home Meds Not Ordered augmentin and bactrim (has other abx ordered), metformin Comments OR tomorrow per morning report
[2018-02-07] MEDS: Insulin Glargine 300 UNITS/3 ML PEN 80 UNITS SC (11:46)
--- NOTE | 2018-02-07 15:13 | CHAPLAIN ---
Lena was friendly and easily engaged in conversation. He told me that he's waiting to contact family members this morning after he speaks with his doctor because he doesn't want to concern family member unnecessarily. I explained my role and offered support.
[2018-02-07] MEDS: Potassium Chloride 20 MEQ TABCR PO (15:18)
[2018-02-07 15:21] VITALS: BP 112/65; PULSE 72; RESP 18; TEMP 36.9; O2SAT 97
[2018-02-07 15:32] LABS: Vancomycin, Trough 7.4 ug/mL (10.0-20.0)
[2018-02-07] MEDS: Enoxaparin 40 MG/0.4 ML SYR SC (17:05)
--- NOTE | 2018-02-07 18:10 | W.PM.PROGNOT ---
Date of service: 02/07/18 Time of Service: 18:10 Assessment and Plan (1) Diabetic ulcer of left foot: Current visit: Yes Status: Acute Failed outpatient treatment with Bactrim and Augmentin. There are several areas of necrosis which will likely require surgical debridement. Podiatry consult placed, Dr. Gray will see the patient today. Continue IV antibiotics meropenem and IV vancomycin. Blood cultures have yielded no growth at 24 hours. Repeat blood work in the morning, continue to monitor blood cultures. Will keep him NPO after midnight, as Dr. Gray has OR time tomorrow and he may want to take him to the OR. (2) Insulin dependent diabetes mellitus: Current visit: Yes Status: Chronic Continue diabetic diet. He is on Lantus 80 units in the a.m. Continue sliding scale mealtime coverage. A health educator consult was placed. Continue to monitor blood sugars. (3) Hypertension: Current visit: Yes Status: Chronic His blood pressures have been in an acceptable range. Continue to monitor blood pressure. (4) DVT prophylaxis: Current visit: Yes Status: Acute He has been on subcutaneous Lovenox for DVT prophylaxis. We will hold this pending possible OR tomorrow (5) Discharge planning issues: Current visit: Yes Status: Acute He is a full code. This case was discussed with Dr. Rogers who is in agreement. Subjective Interval history since last seen: Lena is a 52-year-old gentleman with past medical history significant for insulin-dependent type 2 diabetes, hypertension, hyperlipidemia who presents to the emergency department on 02/06/18 with concerns regarding left foot infection. His symptoms began approximately 2 weeks ago when he noticed a blister to the great toe on the left foot. The blisters progressively worsened. He eventually went to [facility] ED and was prescribed Bactrim. He the presented to the ED here at [facility] on 02/02/18 and was given a prescription for Augmentin in addition to the Bactrim. He went on to take the antibiotics as prescribed and did not notice any improvement to his left foot. His toes actually continued to slowly look worse to him. He followed up with his primary care provider in the office on the day of his admission who advised him to go to the emergency department for evaluation. The emergency department, his workup was essentially unremarkable. There was no leukocytosis, electrolytes and renal function were normal, CMP was notable for hyperglycemia and slightly elevated alkaline phosphatase. He did have an x-ray of the left foot which did not suggest osteomyelitis. He was admitted to the [facility] floor for further evaluation and management. A podiatry consult was placed. Today, he continues to deny any concerns except that he feels that his toes are very slowly getting worse. He denies any pain to his toes. He does have neuropathy. He would prefer not to have his toes amputated if they can be saved. Podiatry will see him this evening. He denies any other concerns, no chest pain, pressure, palpitations no shortness of breath, wheeze, cough, he is tolerating his diet, no nausea, vomiting or diarrhea. His bowels are functioning normally. He does notes that he was not taking care of his diabetes for a while prior to this foot infection. Exam Narrative Exam Narrative: Left foot with ulcerations to toes 2 through 5. Great toe has what appears to be a blood blister, there appears to have been a blister on the medial aspect of his great toe. Toes 2 through 5 have ulcerations which vary in diameter, there does appear to be some necrotic tissue. There is no active drainage. I was not able to palpate DP pulse, PT pulse is palpable. No edema. Capillary refill is sluggish. Const General: cooperative, comfortable and no acute distress Nutritional Appearance: overweight HENMA Head: normocephalic and atraumatic Mouth: moist mucous membranes Eyes Sclera: sclerae normal Cornea: corneas normal Neck Neck: supple and no JVD Resp Effort & Inspection: normal respiratory effort Auscultation: clear to auscultation bilaterally, no rales, no rhonchi and no wheezes Cardio Rate: regular rate Heart Sounds: S1 normal, S2 normal, no click, no gallops, no murmurs and no rubs GI Palpation: soft, no masses and nontender Auscultation: normal bowel sounds Skin Wounds: wounds noted (see narrative.) Extrem General: no edema Objective Objective Clinical Data: Abnormal lab results 02/07/18 02/07/18 02/07/18 Range/Units 06:34 06:34 15:15 RBC 4.30 L (4.50-6.00) m/cumm Hgb 13.4 L (13.5-17.5) g/dL Hct 38.7 L (40.0-50.0) % Potassium 3.4 L (3.5-5.1) mmol/L Creatinine 0.43 L (0.70-1.30) mg/dL Glucose 132 H D (70-100) mg/dL Vancomycin Trough 7.4 L (10.0-20.0) ug/mL Vital Signs Temperature 36.9 C 02/07/18 15:21 Temperature Source Tympanic 02/07/18 15:21 Pulse 72 02/07/18 15:21 Pulse Rhythm Regular 02/07/18 07:40 Respiratory Rate 18 02/07/18 15:21 Respiratory Effort Non-Labored 02/07/18 07:40 Respiratory Depth Normal 02/07/18 07:40 Respiratory Pattern Normal 02/07/18 07:40 Blood Pressure 112/65 02/07/18 15:21 Blood Pressure Position Sitting 02/06/18 12:59 Pulse Oximetry 97 02/07/18 15:21 Oxygen Delivery Method Room Air 02/07/18 15:21 Oxygen Flow Rate 0 02/07/18 15:21 Pain Level 0 02/07/18 07:25 Intake & Output 02/06/18 02/07/18 02/07/18 23:59 11:59 23:59 Intake Total 510 / 510 860 / 860 370 / 370 Balance 510 / 510 860 / 860 370 / 370 Weight 101.605 kg Intake: IV 510 / 510 620 / 620 370 / 370 Oral 240 / 240 Other: Comment Pt voids independent. Laboratory Results WBC 6.22 k/cumm (4.4-10.8) 02/07/18 06:34 RBC 4.30 m/cumm (4.50-6.00) L 02/07/18 06:34 Hgb 13.4 g/dL (13.5-17.5) L 02/07/18 06:34 Hct 38.7 % (40.0-50.0) L 02/07/18 06:34 MCV 90.0 fL (80-95) 02/07/18 06:34 MCH 31.2 pg (27.0-33.0) 02/07/18 06:34 MCHC 34.6 g/dL (32.0-36.0) 09/25/18 06:34 RDW 12.6 % (11.8-14.1) 02/07/18 06:34 Plt Count 172 x1000/uL (130-400) 02/07/18 06:34 MPV 9.9 fL (8.0-11.0) 02/07/18 06:34 Immature Gran % 0.2 02/07/18 06:34 Neutrophils % 60.8 02/07/18 06:34 Lymphocytes % 27.7 02/07/18 06:34 Monocytes % 8.4 02/07/18 06:34 Eosinophils % 2.7 02/07/18 06:34 Basophils % 0.2 02/07/18 06:34 Absolute Neutrophils 3.79 k/cumm (1.2-6.7) 02/07/18 06:34 Absolute Lymphocytes 1.72 k/cumm (1.2-3.4) 02/07/18 06:34 Absolute Monocytes 0.52 k/cumm (0.11-0.7) 02/07/18 06:34 Absolute Eosinophils 0.17 k/cumm (0.0-0.7) 02/07/18 06:34 Absolute Basophils 0.01 k/cumm (0.0-0.2) 02/07/18 06:34 Sodium 140 mmol/L (136-145) 02/07/18 06:34 Potassium 3.4 mmol/L (3.5-5.1) L 02/07/18 06:34 Chloride 104 mmol/L (98-107) 02/07/18 06:34 Carbon Dioxide 29.7 mmol/L (21.0-32.0) 02/07/18 06:34 Anion Gap 6.3 mmol/L (3-11) 02/07/18 06:34 BUN 12 mg/dL (7-18) 02/07/18 06:34 Creatinine 0.43 mg/dL (0.70-1.30) L 02/07/18 06:34 Estimated GFR/1.73 m2 >= 60.00 (mL/min/1.73m2) 02/07/18 06:34 Glucose 132 mg/dL (70-100) H D 02/07/18 06:34 Lactate Cancelled 02/06/18 13:22 Calcium 8.5 mg/dL (8.5-10.1) 02/07/18 06:34 Total Bilirubin 0.4 mg/dL (0.2-1.0) 02/06/18 13:47 AST 10 U/L (15-37) L 02/06/18 13:47 ALT 24 U/L (12-78) 02/06/18 13:47 Alkaline Phosphatase 186 U/L (46-116) H 02/06/18 13:47 C-Reactive Protein 0.22 mg/dL (0.0-0.3) 02/07/18 06:34 Total Protein 7.3 g/dL (6.4-8.2) 02/06/18 13:47 Albumin 3.4 g/dL (3.4-5.0) 02/06/18 13:47 Vancomycin Trough 7.4 ug/mL (10.0-20.0) L 02/07/18 15:15
--- NOTE | 2018-02-07 18:57 | W.PODCONSULT ---
Date of service: 02/07/18 Time of Service: 18:57 Assessment and Plan (1) Diabetic ulcer of left foot: Start date: 02/07/18 Start time: 19:11 Current visit: Yes Status: Acute Assessment: Diabetic ulcerations with gangrenous changes affecting the digits left Plan: The toes were cleansed with povidone iodine swab and bedside debridement performed removing the blister caps from the left second and third toes a clean culture was obtained at the PIPJ level of the left second toe sent to microbiology for Gram stain and sensitivities. Wounds were covered with 2 x 2 gauze dressings and flex net. Wound care will commence consisting of washing the foot gently with soap and water every 12 hours and reapplying in normal saline wet to dry dressing. He is currently on vancomycin and Merrem and and I recommend continuation pending microbiology results. He understands that he is at risk for loss of digits if the necrosis and/or infection persists. History of Present Illness Chief Complaint: Blister with cellulitis and gangrene to the left 5 digits Narrative: There is a 52-year-old white male with comorbidities including type 2 diabetes uncontrolled due to absence of medication, hypertension who developed a blister on his left great toe approximately 2 weeks ago. Indicates that he frequently gets blisters but they just go away without incident. Unfortunately this time the blister persisted and blisters subsequently performed over the dorsal aspects of digits 2, 3, 4, and 5 ALT of the left foot. He was seen at [facility] where he was started on Bactrim he took the medication as prescribed but had worsening of his blisters and increasing redness over the left forefoot. He was subsequently seen February 02 at [facility] ED where he was evaluated and placed on Augmentin in addition to his Bactrim. Unfortunately, once again he failed to thrive and he is now admitted for IV antibiotics and further management. Review of Systems Constitutional Comments: Lena is seen in his room he is laying in his bed comfortable. He has no complaints of pain in his left foot secondary to neuropathy. He denies any fever, chills or feelings of malaise. Musculoskeletal Comments: Muscle groups of 5 out of 5 bilaterally. Necrotic appearing blister formations are noted over the dorsal aspects of the left second and third toes and to a lesser extent fourth and fifth. The overlying skin is necrotic there is fluid within the blister formation is but no odor was noted. Erythema or extends to the metatarsal phalangeal joints. Dry gangrenous appearance is noted to the pulp of the left fifth toe. Dry necrotic region is seen on the dorsum of the left fourth toe at the DIPJ level without drainage evident dry blister formation is seen on the medial wall of the left great toe at the IPJ level. This appears clean. Neurologic Comments: He appears to have dense diabetic base peripheral neuropathy affecting his left foot. Toes were downgoing. Hematologic/Lymphatic Comments: His left foot is warm to the touch. Trace peripheral edema is appreciated calves soft to palpation. DP and PT pulses are nonpalpable manually but easily audible with Doppler. Biphasic flow is appreciated.. Capillary return is appreciated on the plantar pulp of the great toe and left second toe. Diminished third fourth and fifth. 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 He does admit that walking stairs his legs would fatigue after a flight. [facility] Family History Mother Osteoporosis Father Diabetes Brother Healthy adult male Sister Ovarian tumor Daughter Chronic pain Son Palate abnormality Medical History Hyperlipidemia (Acute) Hypertension (Chronic) Insulin dependent diabetes mellitus (Chronic) Social History Smoking/Tobacco Use Status: Former Tobacco Use how long ago did patient quit smokin10/15/13- QUIT 12 YRS AGO Surgical History Arthroplasty of knee Repair of umbilical hernia Exam Narrative Exam Narrative: Diabetic ulcerations with blister formations with gangrenous changes are noted with moderate serous drainage coming from the dorsum of the left second and third toes. Dry gangrenous changes are appreciated involving the tips of the left fourth and fifth toes and a blister formation seen on the plantar medial aspect of the left hallux at the IPJ level. Swab culture was obtained from the left second toe upon debridement sent for Gram stain and sensitivity. His vitals BP 112/65 pulse 72 respiration 18 temperature 36.9 His WBCs are unremarkable no left shift identified. Results Labs : 02/07/18 06:34 02/08/18 08:50 Laboratory Results - last 24 hr 02/06/18 02/07/18 02/07/18 13:22 06:34 06:34 WBC RBC Hgb Hct MCV MCH MCHC RDW Plt Count MPV Immature Gran % Neutrophils % Lymphocytes % Monocytes % Eosinophils % Basophils % Absolute Neutrophils Absolute Lymphocytes Absolute Monocytes Absolute Eosinophils Absolute Basophils Sodium 140 Potassium 3.4 L Chloride 104 Carbon Dioxide 29.7 Anion Gap 6.3 BUN 12 Creatinine 0.43 L Estimated GFR/1.73 m2 >= 60.00 Glucose 132 H D Lactate Cancelled Calcium 8.5 C-Reactive Protein 0.22 Vancomycin Trough 02/07/18 02/07/18 06:34 15:15 WBC 6.22 RBC 4.30 L Hgb 13.4 L Hct 38.7 L MCV 90.0 MCH 31.2 MCHC 34.6 RDW 12.6 Plt Count 172 MPV 9.9 Immature Gran % 0.2 Neutrophils % 60.8 Lymphocytes % 27.7 Monocytes % 8.4 Eosinophils % 2.7 Basophils % 0.2 Absolute Neutrophils 3.79 Absolute Lymphocytes 1.72 Absolute Monocytes 0.52 Absolute Eosinophils 0.17 Absolute Basophils 0.01 Sodium Potassium Chloride Carbon Dioxide Anion Gap BUN Creatinine Estimated GFR/1.73 m2 Glucose Lactate Calcium C-Reactive Protein Vancomycin Trough 7.4 L
[2018-02-08] MEDS: VANCOMYCIN 1,250 MG in Normal Saline 250 ML 167 MG IV ×3 (00:06→16:49)
[2018-02-08 00:07] VITALS: BP 135/84; PULSE 69; RESP 16; O2SAT 97
[2018-02-08] MEDS: Normal Saline Flush 10 ML SYR IVP ×3 (00:13→15:53)
[2018-02-08 00:14] VITALS: TEMP 36.4
[2018-02-08] MEDS: MEROPENEM 1 GM in Normal Saline 100 ML IVPB ×2 (03:59→15:52)
[2018-02-08 07:20] VITALS: BP 127/70; PULSE 70; RESP 18; TEMP 36.4; O2SAT 97
[2018-02-08 07:33] VITALS: O2SAT 96
[2018-02-08] MEDS: Aspirin E.C. 81 MG TABEC PO (08:16)
[2018-02-08] MEDS: Insulin Aspart 300 UNITS/3 ML PEN SC ×4 (08:24→17:55)
[2018-02-08] MEDS: Insulin Glargine 300 UNITS/3 ML PEN 80 UNITS SC (08:26)
[2018-02-08 09:11] LABS: BUN 9 mg/dL (7-18); CREATININE 0.53 mg/dL (0.70-1.30); Calcium 8.3 mg/dL (8.5-10.1); Chloride 101 mmol/L (98-107); Glucose 334 mg/dL (70-100); Potassium 4.5 mmol/L (3.5-5.1); Sodium 134 mmol/L (136-145)
--- NOTE | 2018-02-08 09:40 | DM INPTCON_ITS ---
DESCRIPTION/ASSESSMENT: Lena Kramer is here with foot infection and currently has high blood sugars. Blood sugars for past 24 hours 272-292 taking 8 units insulin correction at lunch and supper and his usual 80u Glargine. His insulin correction at this time is 1 unit covers t Visited Lena again. He states his mealtime insulin here is much lower than what he would give at home. He states he receives 1 unit per 5 grams carbohydrate and 1 unit to correct 10mg/dl with meals. INTERVENTION: Suggest adding mealtime insulin at 1 unit for 5 grams carbohydrate. His insulin correction is currently 1 unit covers 14grams at the resistant level which may be adequate at this time. PLAN: Will follow blood sugars.
--- NOTE | 2018-02-08 10:56 | NUR.NOTE ---
AttemptedIV start rt forearms x2, unsuccessful. notified patient's nurse.
--- NOTE | 2018-02-08 11:15 | W.PM.PROGNOT ---
Date of service: 02/08/18 Time of Service: 11:40 Subjective Interval history since last seen: Lena is seen at bedside this morning., He has no new complaints at this time. He is not experiencing pain in his left foot. Objective: Evaluation of the wounds on the left foot reveal gangrenous changes to the medial wall of the left great toe, dorsal aspects of the second and third toes from the tip of the toe to the midportion of the proximal phalanx, dorsal aspect of the fourth toe from the tip of the toe to the base of the middle phalanx, and primarily the tip and plantar pulp region of the fifth digit. Erythema remains along the distal metatarsal region but overall appears to be slowly improving, there is no cellulitis. Microbiology is still working out the bacterium but appears to be primarily skin isolates at this time. His foot remains warm to the touch pulses are not manually palpable at the ankle or in the popliteal fossa. Doppler signals once again are easily heard for the PT and PT arteries. Assessment: Diabetic ulcerations with gangrenous changes to all toes left Plan: I discussed the case with Dr. Lloyd. I have requested a vascular consultation as I believe a vascular assessment and intervention would greatly benefit this gentleman before proceeding with surgical debridement. Get a request today from micro for a new culture swab. This was obtained without difficulty from the left second and fourth toes and sent to microbiology. In The interim, we will continue with wet-to-dry dressing every 12 hours, continue with his current antibiotic regimen until microbiology identifies sensitivity. I will continue to follow along. Exam Narrative Exam Narrative: Lena is afebrile with this morning, temp 36.4 BP 127/70 pulse 70 respiratory O2 sat at room air is 97% Morning labs show a sodium of 134 creatinine 0.53 glucose 334 calcium 8.3 Objective Objective Clinical Data: Abnormal lab results 02/07/18 02/08/18 Range/Units 15:15 08:50 Sodium 134 L (136-145) mmol/L Creatinine 0.53 L (0.70-1.30) mg/dL Glucose 334 H D (70-100) mg/dL Calcium 8.3 L (8.5-10.1) mg/dL Vancomycin Trough 7.4 L (10.0-20.0) ug/mL Vital Signs Temperature 36.4 C L 09/26/18 07:20 Temperature Source Tympanic 02/08/18 07:20 Pulse 70 02/08/18 07:20 Pulse Rhythm Regular 02/08/18 08:00 Respiratory Rate 18 02/08/18 07:20 Respiratory Effort Non-Labored 02/08/18 08:00 Respiratory Depth Normal 02/07/18 20:42 Respiratory Pattern Normal 02/07/18 20:42 Blood Pressure 127/70 02/08/18 07:20 Blood Pressure Position Sitting 02/06/18 12:59 Pulse Oximetry 96 02/08/18 07:33 Oxygen Delivery Method Room Air 02/08/18 07:33 Oxygen Flow Rate 0 02/08/18 07:33 Pain Level 0 02/08/18 07:20 Intake & Output 02/07/18 02/08/18 02/08/18 18:59 06:59 18:59 Intake Total 880 / 880 830 / 830 538.133 / 538.133 Balance 880 / 880 830 / 830 538.133 / 538.133 Intake: IV 640 / 640 350 / 350 178.133 / 178.133 Oral 240 / 240 480 / 480 360 / 360 Other: Comment Pt voids independent. Pt voids independent. Voiding Methods Toilet Laboratory Results WBC 6.22 k/cumm (4.4-10.8) 02/07/18 06:34 RBC 4.30 m/cumm (4.50-6.00) L 02/07/18 06:34 Hgb 13.4 g/dL (13.5-17.5) L 02/07/18 06:34 Hct 38.7 % (40.0-50.0) L 02/07/18 06:34 MCV 90.0 fL (80-95) 02/07/18 06:34 MCH 31.2 pg (27.0-33.0) 02/07/18 06:34 MCHC 34.6 g/dL (32.0-36.0) 02/07/18 06:34 RDW 12.6 % (11.8-14.1) 02/07/18 06:34 Plt Count 172 x1000/uL (130-400) 02/07/18 06:34 MPV 9.9 fL (8.0-11.0) 02/07/18 06:34 Immature Gran % 0.2 02/07/18 06:34 Neutrophils % 60.8 02/07/18 06:34 Lymphocytes % 27.7 02/07/18 06:34 Monocytes % 8.4 02/07/18 06:34 Eosinophils % 2.7 02/07/18 06:34 Basophils % 0.2 02/07/18 06:34 Absolute Neutrophils 3.79 k/cumm (1.2-6.7) 02/07/18 06:34 Absolute Lymphocytes 1.72 k/cumm (1.2-3.4) 02/07/18 06:34 Absolute Monocytes 0.52 k/cumm (0.11-0.7) 02/07/18 06:34 Absolute Eosinophils 0.17 k/cumm (0.0-0.7) 02/07/18 06:34 Absolute Basophils 0.01 k/cumm (0.0-0.2) 02/07/18 06:34 Sodium 134 mmol/L (136-145) L 02/08/18 08:50 Potassium 4.5 mmol/L (3.5-5.1) D 02/08/18 08:50 Chloride 101 mmol/L (98-107) 02/08/18 08:50 Carbon Dioxide 27.0 mmol/L (21.0-32.0) 02/08/18 08:50 Anion Gap 6.0 mmol/L (3-11) 02/08/18 08:50 BUN 9 mg/dL (7-18) 02/08/18 08:50 Creatinine 0.53 mg/dL (0.70-1.30) L 02/08/18 08:50 Estimated GFR/1.73 m2 >= 60.00 (mL/min/1.73m2) 02/08/18 08:50 Glucose 334 mg/dL (70-100) H D 02/08/18 08:50 Lactate Cancelled 02/06/18 13:22 Calcium 8.3 mg/dL (8.5-10.1) L 02/08/18 08:50 Total Bilirubin 0.4 mg/dL (0.2-1.0) 02/06/18 13:47 AST 10 U/L (15-37) L 02/06/18 13:47 ALT 24 U/L (12-78) 02/06/18 13:47 Alkaline Phosphatase 186 U/L (46-116) H 02/06/18 13:47 C-Reactive Protein 0.22 mg/dL (0.0-0.3) 02/07/18 06:34 Total Protein 7.3 g/dL (6.4-8.2) 02/06/18 13:47 Albumin 3.4 g/dL (3.4-5.0) 02/06/18 13:47 Vancomycin Trough 7.4 ug/mL (10.0-20.0) L 02/07/18 15:15
--- NOTE | 2018-02-08 14:34 | PDOC.CMPRO ---
- If Service Date Differs Date of service: 02/08/18 Time of Service: 14:34 Care Management Progress Note S/O:Lena is asleep when CM enters the room. Patient reviewed at interdisciplinary rounds he continues to receive IV antibiotics. He will change to inpatient admission today. A:Lena is a 52 year old male admitted with diabetic foot infection P:Lena will be discharged home when medically ready per provider. CM will continue to offer support to patient, family and care team regarding discharge planning and disposition.
[2018-02-08 15:28] LABS: Vancomycin, Trough 11.1 ug/mL (10.0-20.0)
--- NOTE | 2018-02-08 15:40 | PGE_ITS ---
Date of service: 02/08/18 Time of Service: 15:38 Assessment and Plan (1) Diabetic ulcer of left foot: Current visit: Yes Status: Acute Failed outpatient treatment with Bactrim and Augmentin. He has been seen by podiatry, a bedside debridement was preformed. Dr. Gray made dressing recommendations. He also recommends the patient be transferred for a vascular workup. A phone call was placed to [facility] [place], they do not have any available beds. Will continue to work on transfer. Continue IV antibiotics including meropenem and IV vancomycin. Blood cultures have yielded no growth at 48 hours. Repeat blood work in the morning, continue to monitor blood cultures. Dr. Gray will continue to follow. (2) Insulin dependent diabetes mellitus: Current visit: Yes Status: Chronic His blood sugars are running high. Continue diabetic diet. He is on Lantus 80 units in the a.m. Continue sliding scale mealtime coverage. He has been seen by the family living educator. Plan to add mealtime insulin at 1 unit for 5 grams of carbohydrates. Continue to monitor blood sugars. (3) Hypertension: Current visit: Yes Status: Chronic His blood pressures have been in an acceptable range. Continue to monitor blood pressure. (4) DVT prophylaxis: Current visit: Yes Status: Acute Lovenox for DVT prophylaxis. (5) Discharge planning issues: Current visit: Yes Status: Acute He is a full code. This case was discussed with Dr. Rogers who is in agreement. Subjective Interval history since last seen: Lena is a 52-year-old gentleman with past medical history significant for insulin-dependent type 2 diabetes, hypertension , hyperlipidemia who presents to the emergency department on 02/06/18 with concerns regarding left foot infection. His symptoms began approximately 2 weeks ago when he noticed a blister to the great toe on the left foot. The blisters progressively worsened. He eventually went to [facility] ED and was prescribed Bactrim. He the presented to the ED here at [facility] on 02/02/18 and was given a prescription for Augmentin in addition to the Bactrim. He went on to take the antibiotics as prescribed and did not notice any improvement to his left foot. His toes actually continued to slowly look worse to him. He followed up with his primary care provider in the office on the day of his admission who advised him to go to the emergency department for evaluation. The emergency department, his workup was essentially unremarkable. There was no leukocytosis, electrolytes and renal function were normal, CMP was notable for hyperglycemia and slightly elevated alkaline phosphatase. He did have an x-ray of the left foot which did not suggest osteomyelitis. He was admitted to the [facility] floor for further evaluation and management. He has been seen by podiatry. Dr. Gray preformed a bedside debridement and took wound cultures which are currently pending. He recommended that this young gentleman needs a full vascular work up. A phone call was placed to [facility] vascular, we were advised that they did not have any beds. Will continue dressing changes as ordered by Podiatry and Podiatry will continue to follow. Continue to try to get him to a tertiary care center where vascular is available. Today, he denies concerns. He denies pain in his foot, he has neuropathy. He is eating and drinking and tolerating his diet. He has no chest pain, pressure, palpitations no shortness of breath, wheeze or cough. His bowels and bladder are functioning well. Exam Narrative Exam Narrative: Left foot with dressing clean, dry and intact. No drainage. I was not able to palpate DP pulse, PT pulse is palpable. No edema. Const General: cooperative, comfortable and no acute distress Nutritional Appearance: overweight HENMT Head: normocephalic and atraumatic Mouth: moist mucous membranes Eyes Sclera: sclerae normal Cornea: corneas normal Neck Neck: supple and no JVD Resp Effort & Inspection: normal respiratory effort Auscultation: clear to auscultation bilaterally, no rales, no rhonchi and no wheezes Cardio Rate: regular rate Heart Sounds: S1 normal, S2 normal, no click, no gallops, no murmurs and no rubs GI Palpation: soft, no masses and nontender Auscultation: normal bowel sounds Skin Wounds: wounds noted (see narrative.) Extrem General: no edema Objective Objective Clinical Data: Abnormal lab results 02/08/18 Range/Units 08:50 Sodium 134 L (136-145) mmol/L Creatinine 0.53 L (0.70-1.30) mg/dL Glucose 334 H D (70-100) mg/dL Calcium 8.3 L (8.5-10.1) mg/dL Vital Signs Temperature 36.4 C L 02/08/18 07:20 Temperature Source Tympanic 02/08/18 07:20 Pulse 70 02/08/18 07:20 Pulse Rhythm Regular 02/08/18 08:00 Respiratory Rate 18 02/08/18 07:20 Respiratory Effort Non-Labored 02/08/18 08:00 Respiratory Depth Normal 02/07/18 20:42 Respiratory Pattern Normal 02/07/18 20:42 Blood Pressure 127/70 02/08/18 07:20 Blood Pressure Position Sitting 02/06/18 12:59 Pulse Oximetry 96 02/08/18 07:33 Oxygen Delivery Method Room Air 02/08/18 07:33 Oxygen Flow Rate 0 02/08/18 07:33 Pain Level 0 02/08/18 07:20 Intake & Output 02/07/18 02/08/18 02/08/18 23:59 11:59 23:59 Intake Total 850 / 850 888.133 / 888.133 250 / 250 Balance 850 / 850 888.133 / 888.133 250 / 250 Intake: IV 370 / 370 528.133 / 528.133 Oral 480 / 480 360 / 360 250 / 250 Other: Comment Pt voids independent. Pt voids independent. Voiding Methods Toilet Laboratory Results WBC 6.22 k/cumm (4.4-10.8) 02/07/18 06:34 RBC 4.30 m/cumm (4.50-6.00) L 02/07/18 06:34 Hgb 13.4 g/dL (13.5-17.5) L 02/07/18 06:34 Hct 38.7 % (40.0-50.0) L 02/07/18 06:34 MCV 90.0 fL (80-95) 02/07/18 06:34 MCH 31.2 pg (27.0-33.0) 02/07/18 06:34 MCHC 34.6 g/dL (32.0-36.0) 02/07/18 06:34 RDW 12.6 % (11.8-14.1) 02/07/18 06:34 Plt Count 172 x1000/uL (130-400) 02/07/18 06:34 MPV 9.9 fL (8.0-11.0) 02/07/18 06:34 Immature Gran % 0.2 02/07/18 06:34 Neutrophils % 60.8 02/07/18 06:34 Lymphocytes % 27.7 02/07/18 06:34 Monocytes % 8.4 02/07/18 06:34 Eosinophils % 2.7 02/07/18 06:34 Basophils % 0.2 02/07/18 06:34 Absolute Neutrophils 3.79 k/cumm (1.2-6.7) 02/07/18 06:34 Absolute Lymphocytes 1.72 k/cumm (1.2-3.4) 02/07/18 06:34 Absolute Monocytes 0.52 k/cumm (0.11-0.7) 02/07/18 06:34 Absolute Eosinophils 0.17 k/cumm (0.0-0.7) 02/07/18 06:34 Absolute Basophils 0.01 k/cumm (0.0-0.2) 02/07/18 06:34 Sodium 134 mmol/L (136-145) L 02/08/18 08:50 Potassium 4.5 mmol/L (3.5-5.1) D 02/08/18 08:50 Chloride 101 mmol/L (98-107) 02/08/18 08:50 Carbon Dioxide 27.0 mmol/L (21.0-32.0) 02/08/18 08:50 Anion Gap 6.0 mmol/L (3-11) 02/08/18 08:50 BUN 9 mg/dL (7-18) 02/08/18 08:50 Creatinine 0.53 mg/dL (0.70-1.30) L 02/08/18 08:50 Estimated GFR/1.73 m2 >= 60.00 (mL/min/1.73m2) 02/08/18 08:50 Glucose 334 mg/dL (70-100) H D 02/08/18 08:50 Lactate Cancelled 02/06/18 13:22 Calcium 8.3 mg/dL (8.5-10.1) L 02/08/18 08:50 Total Bilirubin 0.4 mg/dL (0.2-1.0) 02/06/18 13:47 AST 10 U/L (15-37) L 02/06/18 13:47 ALT 24 U/L (12-78) 02/06/18 13:47 Alkaline Phosphatase 186 U/L (46-116) H 02/06/18 13:47 C-Reactive Protein 0.22 mg/dL (0.0-0.3) 02/07/18 06:34 Total Protein 7.3 g/dL (6.4-8.2) 02/06/18 13:47 Albumin 3.4 g/dL (3.4-5.0) 02/06/18 13:47 Vancomycin Trough 11.1 ug/mL (10.0-20.0) 02/08/18 15:12
[2018-02-08 15:54] VITALS: BP 125/76; PULSE 70; RESP 19; TEMP 36.7; O2SAT 97
[2018-02-08] MEDS: Enoxaparin 40 MG/0.4 ML SYR SC (17:56)
[2018-02-08 23:55] VITALS: BP 118/73; PULSE 67; RESP 18; TEMP 36.7; O2SAT 96
[2018-02-09] MEDS: Normal Saline Flush 10 ML SYR IVP ×3 (00:32→20:40)
[2018-02-09] MEDS: VANCOMYCIN 1,250 MG in Normal Saline 250 ML 167 MG IV ×3 (00:33→17:32)
[2018-02-09] MEDS: MEROPENEM 1 GM in Normal Saline 100 ML IVPB (03:13)
[2018-02-09 07:18] LABS: HGB 13.4 g/dL (13.5-17.5); Mean Corp. HGB Concentration 34.4 g/dL (32.0-36.0); Mean Corpuscular Hemoglobin 31.4 pg (27.0-33.0); Mean Corpuscular Volume 91.3 fL (80-95); Platelet Count 157 x1000/uL (130-400); RBC 4.27 m/cumm (4.50-6.00); RBC Distribution Width 12.4 % (11.8-14.1); White Blood Cell Count 5.07 k/cumm (4.4-10.8)
[2018-02-09 07:19] LABS: Anion Gap 8.2 mmol/L (3-11); BUN 12 mg/dL (7-18); CO2 27.8 mmol/L (21.0-32.0); CREATININE 0.45 mg/dL (0.70-1.30); Calcium 8.1 mg/dL (8.5-10.1); Chloride 105 mmol/L (98-107); Glucose 131 mg/dL (70-100); Potassium 3.8 mmol/L (3.5-5.1); Sodium 141 mmol/L (136-145)
[2018-02-09 07:35] VITALS: BP 142/82; PULSE 66; RESP 19; TEMP 36.3; O2SAT 97
--- NOTE | 2018-02-09 08:06 | W.PM.PROGNOT ---
Date of service: 02/09/18 Time of Service: 08:07 Assessment and Plan (1) Diabetic ulcer of left foot: Current visit: Yes Status: Acute Assessment: Diabetic ulcerations with gangrenous changes affecting the digits left Plan: The toes were cleansed with povidone iodine swab and bedside debridement performed removing the blister caps from the left second and third toes a clean culture was obtained at the PIPJ level of the left second toe sent to microbiology for Gram stain and sensitivities. Wounds were covered with 2 x 2 gauze dressings and flex net. Wound care will commence consisting of washing the foot gently with soap and water every 12 hours and reapplying in normal saline wet to dry dressing. He is currently on vancomycin and Merrem and and I recommend continuation pending microbiology results. He understands that he is at risk for loss of digits if the necrosis and/or infection persists. Subjective Interval history since last seen: Lena is seen at bedside this morning., He has no new complaints at this time. He is not experiencing pain in his left foot. Objective: Evaluation of the wounds on the left foot reveal gangrenous changes to the medial wall of the left great toe, dorsal aspects of the second and third toes from the tip of the toe to the midportion of the proximal phalanx, dorsal aspect of the fourth toe from the tip of the toe to the base of the middle phalanx, and primarily the tip and plantar pulp region of the fifth digit. Erythema has resolved, and the digits are now dry. There is no serous drainage or purulent matter identified. Microbiology is still working out the bacterium but appears to be primarily skin isolates at this time. His foot remains warm to the touch pulses are not manually palpable at the ankle or in the popliteal fossa. Doppler signals once again are easily heard for the PT and PT arteries. Assessment: Diabetic ulcerations with gangrenous changes to all toes left foot Plan: I discussed the case with Dr. Lloyd. A vascular consultation is being worked on and hopefully will be able to find a facility to take him to analyze his vascularity and perform intervention as needed. It appears that he very well may be able to heal the injury to his toes with time and patience although I did warn him that at any time there could be setbacks and he could still go on to lose his toes. He is to remain on his current antibiotic regimen pending final microbiologic identification and sensitivities. Discussed the case with Dr. Lloyd I will continue to follow along. Objective Objective Clinical Data: Abnormal lab results 02/08/18 02/09/18 02/09/18 Range/Units 08:50 06:30 06:30 RBC 4.27 L (4.50-6.00) m/cumm Hgb 13.4 L (13.5-17.5) g/dL Hct 39.0 L (40.0-50.0) % Sodium 134 L (136-145) mmol/L Creatinine 0.53 L 0.45 L (0.70-1.30) mg/dL Glucose 334 H D 131 H D (70-100) mg/dL Calcium 8.3 L 8.1 L (8.5-10.1) mg/dL Vital Signs Temperature 36.7 C 02/08/18 23:55 Temperature Source Tympanic 02/08/18 23:55 Pulse 67 02/08/18 23:55 Pulse Rhythm Regular 02/08/18 20:39 Respiratory Rate 18 02/08/18 23:55 Respiratory Effort 02/08/18 20:39 Respiratory Depth Normal 02/08/18 20:39 Respiratory Pattern Normal 02/08/18 20:39 Blood Pressure 118/73 02/08/18 23:55 Blood Pressure Position Sitting 02/06/18 12:59 Pulse Oximetry 96 02/08/18 23:55 Oxygen Delivery Method Room Air 02/08/18 23:55 Oxygen Flow Rate 0 02/08/18 23:55 Pain Level 0 02/08/18 07:20 Intake & Output 02/08/18 02/09/18 02/09/18 18:59 06:59 18:59 Intake Total 1210.000 / 1210.000 450 / 450 Balance 1210.000 / 1210.000 450 / 450 Intake: IV 600.000 / 600.000 350 / 350 Oral 610 / 610 100 / 100 Other: Urine Appearance Clear Comment Pt voids independent. Voiding Methods Toilet Laboratory Results WBC 5.07 k/cumm (4.4-10.8) 02/09/18 06:30 RBC 4.27 m/cumm (4.50-6.00) L 02/09/18 06:30 Hgb 13.4 g/dL (13.5-17.5) L 02/09/18 06:30 Hct 39.0 % (40.0-50.0) L 02/09/18 06:30 MCV 91.3 fL (80-95) 02/09/18 06:30 MCH 31.4 pg (27.0-33.0) 02/09/18 06:30 MCHC 34.4 g/dL (32.0-36.0) 02/09/18 06:30 RDW 12.4 % (11.8-14.1) 02/09/18 06:30 Plt Count 157 x1000/uL (130-400) 02/09/18 06:30 MPV 10.0 fL (8.0-11.0) 02/09/18 06:30 Immature Gran % 0.2 02/07/18 06:34 Neutrophils % 60.8 02/07/18 06:34 Lymphocytes % 27.7 02/07/18 06:34 Monocytes % 8.4 02/07/18 06:34 Eosinophils % 2.7 02/07/18 06:34 Basophils % 0.2 02/07/18 06:34 Absolute Neutrophils 3.79 k/cumm (1.2-6.7) 02/07/18 06:34 Absolute Lymphocytes 1.72 k/cumm (1.2-3.4) 02/07/18 06:34 Absolute Monocytes 0.52 k/cumm (0.11-0.7) 02/07/18 06:34 Absolute Eosinophils 0.17 k/cumm (0.0-0.7) 02/07/18 06:34 Absolute Basophils 0.01 k/cumm (0.0-0.2) 02/07/18 06:34 Sodium 141 mmol/L (136-145) 02/09/18 06:30 Potassium 3.8 mmol/L (3.5-5.1) 02/09/18 06:30 Chloride 105 mmol/L (98-107) 02/09/18 06:30 Carbon Dioxide 27.8 mmol/L (21.0-32.0) 02/09/18 06:30 Anion Gap 8.2 mmol/L (3-11) 02/09/18 06:30 BUN 12 mg/dL (7-18) 02/09/18 06:30 Creatinine 0.45 mg/dL (0.70-1.30) L 02/09/18 06:30 Estimated GFR/1.73 m2 >= 60.00 (mL/min/1.73m2) 02/09/18 06:30 Glucose 131 mg/dL (70-100) H D 02/09/18 06:30 Lactate Cancelled 02/06/18 13:22 Calcium 8.1 mg/dL (8.5-10.1) L 02/09/18 06:30 Total Bilirubin 0.4 mg/dL (0.2-1.0) 02/06/18 13:47 AST 10 U/L (15-37) L 02/06/18 13:47 ALT 24 U/L (12-78) 02/06/18 13:47 Alkaline Phosphatase 186 U/L (46-116) H 02/06/18 13:47 C-Reactive Protein 0.22 mg/dL (0.0-0.3) 02/07/18 06:34 Total Protein 7.3 g/dL (6.4-8.2) 02/06/18 13:47 Albumin 3.4 g/dL (3.4-5.0) 02/06/18 13:47 Vancomycin Trough 11.1 ug/mL (10.0-20.0) 02/08/18 15:12
[2018-02-09] MEDS: Aspirin E.C. 81 MG TABEC PO (08:12)
[2018-02-09] MEDS: Insulin Aspart 300 UNITS/3 ML PEN SC ×3 (09:03→17:31)
[2018-02-09] MEDS: Insulin Glargine 300 UNITS/3 ML PEN 80 UNITS SC (09:06)
[2018-02-09] MEDS: Magnesium Oxide 400 MG TAB PO (09:34)
[2018-02-09] MEDS: POTASSIUM CHLORIDE 20 MEQ, POTASSIUM CHLORIDE 10 MEQ 30 MEQ PO (09:34)
--- NOTE | 2018-02-09 13:59 | PGE_ITS ---
Assessment and Plan (1) Diabetic ulcer of left foot: Current visit: Yes Status: Acute Failed outpatient treatment with Bactrim and Augmentin. He has been seen by podiatry, a bedside debridement was preformed. Dr. Gray made dressing recommendations. He also recommends the patient be transferred for a vascular workup. A phone call was placed to [facility] yesterday, they did not have any available beds. [facility] has accepted the patient pending bed availablility. Continue IV antibiotics including vancomycin. His wound cultures grew Group B strep and Staph aureus, the meropenem has been discontinued based on these cutlures. Blood cultures have yielded no growth at 48 hours. Repeat blood work in the morning, continue to monitor blood cultures and wound cultures. Dr. Gray will continue to follow. Transfer to [facility] when a bed becomes available. (2) Insulin dependent diabetes mellitus: Current visit: Yes Status: Chronic His blood sugars are running in an acceptable range. Continue diabetic diet. He is on Lantus 80 units in the a.m. Continue sliding scale mealtime coverage. Meal time coverage has been added at a 1 unit of insulin to 5 units of carbs ratio. He has been seen by the in service educator. Continue to monitor blood sugars. (3) Hypertension: Current visit: Yes Status: Chronic His blood pressures have been in an acceptable range. Continue to monitor blood pressure. (4) DVT prophylaxis: Current visit: Yes Status: Acute Lovenox for DVT prophylaxis. (5) Discharge planning issues: Current visit: Yes Status: Acute He is a full code. This case was discussed with Dr. Rogers who is in agreement. Subjective Interval history since last seen: alfreda is a 52-year-old gentleman with past medical history significant for insulin-dependent type 2 diabetes, hypertension , hyperlipidemia who presents to the emergency department on 02/06/18 with concerns regarding left foot infection. His symptoms began approximately 2 weeks ago when he noticed a blister to the great toe on the left foot. The blisters progressively worsened. He eventually went to [facility] ED and was prescribed Bactrim. He the presented to the ED here at [facility] on 02/02/18 and was given a prescription for Augmentin in addition to the Bactrim. He went on to take the antibiotics as prescribed and did not notice any improvement to his left foot. His toes actually continued to slowly worsen. He followed up with his primary care provider in the office on the day of his admission who advised him to go to the emergency department for evaluation. The emergency department on 02/06/18, his workup was essentially unremarkable. There was no leukocytosis, electrolytes and renal function were normal, CMP was notable for hyperglycemia and slightly elevated alkaline phosphatase. He did have an x-ray of the left foot which did not suggest osteomyelitis. He was admitted to the Med/Surg floor for further evaluation and management. He was started on vancomycin and meropenem for potentially limb- saving treatment in the setting of a diabetic wound infection. His antibiotic therapy has been stepped down to Vancomycin without Meropenem now that culture results are available. A podiatry consult was placed. Dr. Gray, Podiatry, was able to preform a bedside debridement. At that time, he obtained wound cultures. The wound cultures are currently growing Group B strep and Staph Aureus. His blood cultures have yielded no growth at [address] Gray recommends that the patient undergo a vascular work up. A phone call was placed to [facility] on 02/08/18, they did not have any beds available. Today, a call was placed to [facility], who agreed to take the patient pending bed availability. He will be transferred to [facility] for a full vascular work up and for further treatment when a bed becomes available. His blood sugars were initially elevated in the 200s. Mealtime insulin was added to his usual lantus with improvement in his fingersticks. He is on a carb counting diet. He verbalizes no concerns other than his infected toes on his right foot. He denies pain in the right foot, he has neuropathy. He has no headache, fever or chills, no chest pain/pressure, palpitations, no nausea, vomiting, diarrhea, he is eating and drinking and tolerating his diet. He denies any other concerns. He is agreeable to transfer to [facility] for furhter vascular workup. Exam Narrative Exam Narrative: Left foot reveals gangrenous changes to the medial aspect of the left great toe as well as to the 2-5th toes. There is no active drainage. I was not able to palpate DP pulse. However, he was seen by Dr. Gray, this morning who easily found doppler signals at the posterior tibial pulse. His foot is warm to touch, capillary refill is sluggish. No edema. Const General: cooperative, comfortable and no acute distress Nutritional Appearance: overweight HENAZ Head: normocephalic and atraumatic Mouth: moist mucous membranes Eyes Sclera: sclerae normal Cornea: corneas normal Neck Neck: supple and no JVD Resp Effort & Inspection: normal respiratory effort Auscultation: clear to auscultation bilaterally, no rales, no rhonchi and no wheezes Cardio Rate: regular rate Heart Sounds: S1 normal, S2 normal, no click, no gallops, no murmurs and no rubs GI Palpation: soft, no masses and nontender Auscultation: normal bowel sounds Skin Wounds: wounds noted (see narrative.) Neuro General: alert, awake and oriented x3 Speech: speech normal Gait: normal gait Motor: strength 5/5 throughout Extrem General: no edema Objective Objective Clinical Data: Abnormal lab results 02/09/18 02/09/18 Range/Units 06:30 06:30 RBC 4.27 L (4.50-6.00) m/cumm Hgb 13.4 L (13.5-17.5) g/dL Hct 39.0 L (40.0-50.0) % Creatinine 0.45 L (0.70-1.30) mg/dL Glucose 131 H D (70-100) mg/dL Calcium 8.1 L (8.5-10.1) mg/dL Vital Signs Temperature 36.3 C L 02/09/18 07:35 Temperature Source Tympanic 02/09/18 07:35 Pulse 66 02/09/18 07:35 Pulse Rhythm Regular 02/09/18 07:40 Respiratory Rate 19 02/09/18 07:35 Respiratory Effort 02/09/18 07:40 Respiratory Depth Normal 02/09/18 07:40 Respiratory Pattern Normal 02/09/18 07:40 Blood Pressure 142/82 H 02/09/18 07:35 Blood Pressure Position Sitting 02/06/18 12:59 Pulse Oximetry 97 02/09/18 07:35 Oxygen Delivery Method Room Air 02/09/18 07:35 Oxygen Flow Rate 0 02/09/18 07:35 Pain Level 0 02/08/18 07:20 Comment 02/09/18 07:35 Intake & Output 09/26/18 09/27/18 09/27/18 23:59 11:59 23:59 Intake Total 671.867 / 671.867 900 / 900 Balance 671.867 / 671.867 900 / 900 Intake: IV 421.867 / 421.867 350 / 350 Oral 250 / 250 550 / 550 Other: Urine Appearance Clear Clear Laboratory Results WBC 5.07 k/cumm (4.4-10.8) 02/09/18 06:30 RBC 4.27 m/cumm (4.50-6.00) L 02/09/18 06:30 Hgb 13.4 g/dL (13.5-17.5) L 02/09/18 06:30 Hct 39.0 % (40.0-50.0) L 02/09/18 06:30 MCV 91.3 fL (80-95) 02/09/18 06:30 MCH 31.4 pg (27.0-33.0) 02/09/18 06:30 MCHC 34.4 g/dL (32.0-36.0) 02/09/18 06:30 RDW 12.4 % (11.8-14.1) 02/09/18 06:30 Plt Count 157 x1000/uL (130-400) 02/09/18 06:30 MPV 10.0 fL (8.0-11.0) 02/09/18 06:30 Immature Gran % 0.2 02/07/18 06:34 Neutrophils % 60.8 02/07/18 06:34 Lymphocytes % 27.7 02/07/18 06:34 Monocytes % 8.4 02/07/18 06:34 Eosinophils % 2.7 02/07/18 06:34 Basophils % 0.2 02/07/18 06:34 Absolute Neutrophils 3.79 k/cumm (1.2-6.7) 02/07/18 06:34 Absolute Lymphocytes 1.72 k/cumm (1.2-3.4) 02/07/18 06:34 Absolute Monocytes 0.52 k/cumm (0.11-0.7) 02/07/18 06:34 Absolute Eosinophils 0.17 k/cumm (0.0-0.7) 02/07/18 06:34 Absolute Basophils 0.01 k/cumm (0.0-0.2) 02/07/18 06:34 Sodium 141 mmol/L (136-145) 02/09/18 06:30 Potassium 3.8 mmol/L (3.5-5.1) 02/09/18 06:30 Chloride 105 mmol/L (98-107) 02/09/18 06:30 Carbon Dioxide 27.8 mmol/L (21.0-32.0) 02/09/18 06:30 Anion Gap 8.2 mmol/L (3-11) 02/09/18 06:30 BUN 12 mg/dL (7-18) 02/09/18 06:30 Creatinine 0.45 mg/dL (0.70-1.30) L 02/09/18 06:30 Estimated GFR/1.73 m2 >= 60.00 (mL/min/1.73m2) 02/09/18 06:30 Glucose 131 mg/dL (70-100) H D 02/09/18 06:30 Lactate Cancelled 02/06/18 13:22 Calcium 8.1 mg/dL (8.5-10.1) L 02/09/18 06:30 Total Bilirubin 0.4 mg/dL (0.2-1.0) 02/06/18 13:47 AST 10 U/L (15-37) L 02/06/18 13:47 ALT 24 U/L (12-78) 02/06/18 13:47 Alkaline Phosphatase 186 U/L (46-116) H 02/06/18 13:47 C-Reactive Protein 0.22 mg/dL (0.0-0.3) 02/07/18 06:34 Total Protein 7.3 g/dL (6.4-8.2) 02/06/18 13:47 Albumin 3.4 g/dL (3.4-5.0) 02/06/18 13:47 Vancomycin Trough 11.1 ug/mL (10.0-20.0) 02/08/18 15:12
[2018-02-09 15:47] VITALS: BP 133/72; PULSE 72; RESP 18; TEMP 37.1; O2SAT 94
--- NOTE | 2018-02-09 16:12 | PDOC.CMPRO ---
- If Service Date Differs Date of service: 02/09/18 Time of Service: 16:12 Care Management Progress Note S/O: Lena is in bed he is aware of pending transfer to [facility]. He has no other questions at this time. He has been accepted to vascular services. A:Lena is a 52 year old male admitted with diabetic foot infection P:Lena has been accepted and will be transferred to [facility] once bed becomes available. He will transport via ambulance. Anticipate he will be transferred today. CM will continue to offer support to patient, family and care team regarding discharge planning and disposition.
--- NOTE | 2018-02-09 16:16 | CMPROGNOTE_ITS ---
- If Service Date Differs Date of service: 02/09/18 Time of Service: 16:12 Care Management Progress Note S/O: Lena is in bed he is aware of pending transfer to [facility]. He has no other questions at this time. He has been accepted to vascular services. A:Lena is a 52 year old male admitted with diabetic foot infection P:Lena has been accepted and will be transferred to [facility] once bed becomes available. He will transport via ambulance. Anticipate he will be transferred today. CM will continue to offer support to patient, family and care team regarding discharge planning and disposition.
[2018-02-09] MEDS: Enoxaparin 40 MG/0.4 ML SYR SC (19:00)
[2018-02-09] MEDS: Normal Saline 500 ML 167 ML IV (19:20)
--- NOTE | 2018-02-09 23:27 | NUR.NOTE ---
Nursing Note: Report phoned to Sheree At the [facility] center and all questions answered.
== END 2018-02-09 23:22 | DRG 623 ==
LOC: ER 16:09 → MS 16:59
PROVIDERS: Nurse Practitioner; Nurse Practitioner Primary Care; Admitting Provider Internal Medicine; Emergency Provider Student in an Organized Health Care Education/Training Program; PCP Family Medicine; Visit Provider Family Medicine
DX: E11.621 Type 2 diabetes mellitus with foot ulcer (principal); E11.52 Type 2 diabetes mellitus with diabetic peripheral angiopathy with gangrene; I96 Gangrene, not elsewhere classified; L98.498 Non-pressure chronic ulcer of skin of other sites with other specified severity; B95.61 Methicillin susceptible Staphylococcus aureus infection as the cause of diseases classified elsewhere; Z16.29 Resistance to other single specified antibiotic; B95.1 Streptococcus, group B, as the cause of diseases classified elsewhere; E11.65 Type 2 diabetes mellitus with hyperglycemia; E11.622 Type 2 diabetes mellitus with other skin ulcer; E11.42 Type 2 diabetes mellitus with diabetic polyneuropathy; T38.3X6A Underdosing of insulin and oral hypoglycemic [antidiabetic] drugs, initial encounter; Z79.4 Long term (current) use of insulin; L97.529 Non-pressure chronic ulcer of other part of left foot with unspecified severity
CPT/HCPCS: 36415; 80048; 80053; 85027; 87040; 87077; 96365; 96367; 99223; 99231; 99232; 99285; J1650; NC; 73620; 80202; 83605; 85025; 86140; 87070; 87186; 87205; 99220; 99225; G0378

== ENCOUNTER 2018-02-27 08:10 | Outpatient (CLI) | payer MEDICAID, SELFPAY ==
[2018-02-27 08:46] LABS: Hemoglobin A1C 10.1 % (4.5-6.2)
[2018-02-27 09:01] LABS: ALT 77 U/L (12-78); AST 39 U/L (15-37); Albumin 3.2 g/dL (3.4-5.0); Alkaline Phosphatase 187 U/L (46-116); Anion Gap 7.9 mmol/L (3-11); BUN 16 mg/dL (7-18); Bilirubin, Total 0.4 mg/dL (0.2-1.0); CO2 29.1 mmol/L (21.0-32.0); CREATININE 0.61 mg/dL (0.70-1.30); Calcium 8.3 mg/dL (8.5-10.1); Chloride 103 mmol/L (98-107); Glucose 323 mg/dL (70-100); Sodium 140 mmol/L (136-145); Total Protein 6.4 g/dL (6.4-8.2)
== END 2018-02-27 08:30 ==
PROVIDERS: PCP Family Medicine; Visit Provider Family Medicine
DX: E11.65 Type 2 diabetes mellitus with hyperglycemia (principal)
CPT/HCPCS: 36415; 80053; 83036

== ENCOUNTER 2018-10-20 11:43 | Outpatient (CLI) | payer MEDICAID, SELFPAY ==
[2018-10-20 13:10] LABS: ALT 15 U/L (12-78); AST 11 U/L (15-37); Albumin 3.5 g/dL (3.4-5.0); Alkaline Phosphatase 131 U/L (46-116); Anion Gap 12.5 mmol/L (3-11); BUN 15 mg/dL (7-18); CO2 25.5 mmol/L (21.0-32.0); CREATININE 0.61 mg/dL (0.70-1.30); Calcium 9.1 mg/dL (8.5-10.1); Chloride 99 mmol/L (98-107); Glucose 155 mg/dL (70-100); Potassium 3.9 mmol/L (3.5-5.1); Sodium 137 mmol/L (136-145)
[2018-10-20 13:16] LABS: Hemoglobin A1C 10.3 % (4.5-6.2)
== END 2018-10-20 12:03 ==
DX: E11.9 Type 2 diabetes mellitus without complications (principal); E11.3299 Type 2 diabetes mellitus with mild nonproliferative diabetic retinopathy without macular edema, unspecified eye; M25.519 Pain in unspecified shoulder; R63.8 Other symptoms and signs concerning food and fluid intake
CPT/HCPCS: 36415; 80053; 83036

== ENCOUNTER 2019-03-19 07:20 | Outpatient (CLI) | payer MEDICAID, SELFPAY ==
[2019-03-19 08:26] LABS: Hemoglobin A1C 10.2 % (4.5-6.2)
[2019-03-19 08:49] LABS: Calculated LDL 145 mg/dL; Cholesterol 230 mg/dL (50-200); HDL Cholesterol 44 mg/dL (40-60); Triglyceride 205 mg/dL (30-150)
== END 2019-03-19 07:40 ==
PROVIDERS: Referring Provider Pharmacist
DX: I10 Essential (primary) hypertension (principal); E11.9 Type 2 diabetes mellitus without complications; Z79.4 Long term (current) use of insulin
CPT/HCPCS: 80061; 83036

== ENCOUNTER 2020-11-07 09:36 | Outpatient (CLI) | payer MEDICAID, SELFPAY ==
[2020-11-07 12:39] LABS: Abs Immature Grans 0.02 10^3/uL (0.0-0.06); Absolute Basophil Count 0.02 10^3/uL (0.0-0.2); Absolute Eosinophil Count 0.16 10^3/uL (0.0-0.7); Absolute Lymphocyte Count 1.37 10^3/uL (1.2-3.4); Absolute Monocyte Count 0.54 10^3/uL (0.1-0.8); Absolute Neutrophil Count 4.02 10^3/uL (1.2-6.7); Basophils % 0.3; Eosinophils % 2.6; HGB 15.2 g/dL (13.5-17.5); Immature Grans % 0.3; Lymphocytes % 22.3; MCH 30.9 pg (27.0-33.0); MCHC 34.5 % (32.0-36.0); MCV 89.4 fL (80-95); MPV 11.3 fL (8.0-11.0); Monocytes % 8.8; Neutrophils % 65.7; Nucleated RBC 0 %; Platelet Count 153 10^3/uL (130-400); RBC 4.92 10^6/uL (4.36-5.78); RDW 12.5 % (11.8-14.1); RDW-SD 40.1 fL; WBC 6.13 10^3/uL (4.4-10.8)
[2020-11-07 12:59] LABS: ALT 28 U/L (16-63); AST 20 U/L (15-37); Albumin 3.5 g/dL (3.4-5.0); Alkaline Phosphatase 196 U/L (46-116); Anion Gap 6.8 mmol/L (3-11); BUN 22 mg/dL (7-18); Bilirubin, Total 0.6 mg/dL (0.2-1.0); CO2 30.2 mmol/L (21.0-32.0); CREATININE 0.9 mg/dL (0.70-1.30); Calcium 9.2 mg/dL (8.5-10.1); Chloride 101 mmol/L (98-107); Cholesterol 197 mg/dL (<200); Glucose 327 mg/dL (74-106); HDL Cholesterol 39 mg/dL (40-60); Potassium 4.2 mmol/L (3.5-5.1); Sodium 138 mmol/L (136-145); Total Protein 6.7 g/dL (6.4-8.2); Triglyceride 641 mg/dL (<150)
[2020-11-07 13:09] LABS: LDL CHOLESTEROL 72 mg/dL (<100)
[2020-11-07 13:20] LABS: Amylase 29 U/L (25-115)
== END 2020-11-07 09:37 | disposition home or self-care (01) ==
LOC: LOS 09:36
PROVIDERS: Referring Provider Nurse Practitioner Family; Visit Provider Nurse Practitioner Family
DX: I10 Essential (primary) hypertension (principal); E11.9 Type 2 diabetes mellitus without complications; Z79.4 Long term (current) use of insulin; G62.89 Other specified polyneuropathies; E78.5 Hyperlipidemia, unspecified; F10.10 Alcohol abuse, uncomplicated
CPT/HCPCS: 36415; 80053; 80061; 83721; 82150; 85025

== ENCOUNTER 2021-12-04 09:17 | Outpatient (CLI) | payer MEDICAID, SELFPAY ==
[2021-12-04 13:07] LABS: Hemoglobin A1C 7.3 % (<5.7)
[2021-12-04 13:11] LABS: ALT 20 U/L (16-63); AST 15 U/L (15-37); Albumin 3.1 g/dL (3.4-5.0); Alkaline Phosphatase 115 U/L (46-116); Anion Gap 7.8 mmol/L (3-11); BUN 16 mg/dL (7-18); Bilirubin, Total 0.6 mg/dL (0.2-1.0); CO2 29.2 mmol/L (21.0-32.0); CREATININE 0.9 mg/dL (0.70-1.30); Calcium 8.9 mg/dL (8.5-10.1); Calculated LDL 39 mg/dL (<100); Chloride 103 mmol/L (98-107); Cholesterol 120 mg/dL (<200); Glucose 147 mg/dL (74-106); HDL Cholesterol 41 mg/dL (40-60); Sodium 140 mmol/L (136-145); Total Protein 6.7 g/dL (6.4-8.2); Triglyceride 202 mg/dL (<150)
[2021-12-04 13:21] LABS: COMMENT (LAB VIEW ONLY) 59.24 mg/dL
[2021-12-04 13:22] LABS: Microalb ug/mg Crea 211.2 ug/mg Cr
== END 2021-12-04 09:18 | disposition home or self-care (01) ==
LOC: LOS 09:18
PROVIDERS: Visit Provider Family Medicine
DX: I10 Essential (primary) hypertension (principal); E78.5 Hyperlipidemia, unspecified; E11.65 Type 2 diabetes mellitus with hyperglycemia
CPT/HCPCS: 36415; 80053; 80061; 82043; 82570; 83036

== ENCOUNTER 2022-01-07 13:03 | Outpatient (REF) | payer MEDICAID, SELFPAY ==
[2022-01-07 14:04] LABS: C Diff PCR Negative (Negative)
[2022-01-08 12:48] LABS: Campylobacter PCR Negative (Negative); Salmonella PCR Negative (Negative); Shiga Toxin PCR Negative (Negative); Shigella/Enteroinvasive Ecoli Negative (Negative)
== END 2022-01-07 13:04 | disposition home or self-care (01) ==
LOC: LBN 13:03
PROVIDERS: Visit Provider Nurse Practitioner Family
DX: R19.7 Diarrhea, unspecified (principal)
CPT/HCPCS: 87493; 87505

== ENCOUNTER 2022-04-14 10:31 | Outpatient (CLI) | payer MEDICAID, SELFPAY ==
--- NOTE | 2022-04-14 10:30 | RT.EKG_ITS ---
APPROVED REPORT Exam: Resting ECG Reason for Exam: pre-op exam Patient Location: O HR:65 bpm ECG Measurements Heart Rate 65 AXIS GA 171 P -24 QRSd 100 QRS 24 QT 413 T 37 QTc 430 Conclusion Sinus rhythm...normal P axis, V-rate 50- 99 Normal Electrocardiogram
== END 2022-04-14 10:32 | disposition home or self-care (01) ==
LOC: DI.CM 10:32
PROVIDERS: PCP Nurse Practitioner Family; Visit Provider Nurse Practitioner Family
DX: Z01.818 Encounter for other preprocedural examination (principal)
CPT/HCPCS: 93010

== ENCOUNTER 2022-09-16 13:10 | Outpatient (CLI) | payer MEDICAID, SELFPAY ==
--- NOTE | 2022-09-16 13:00 | RT.EKG_ITS ---
APPROVED REPORT Exam: Resting ECG Reason for Exam: pre-op Patient Location: O HR:83 bpm ECG Measurements Heart Rate [address] 181 P 8 QRSd 95 QRS -34 QT 379 T 30 QTc 446 Conclusion Sinus rhythm...normal P axis, V-rate 50- 99 Left axis deviation...QRS axis (-30,-90)
== END 2022-09-16 13:11 | disposition home or self-care (01) ==
LOC: DI.CM 13:11
PROVIDERS: PCP Nurse Practitioner Family; Visit Provider Nurse Practitioner Family
DX: Z01.818 Encounter for other preprocedural examination (principal)
CPT/HCPCS: 93010

== ENCOUNTER 2022-10-01 00:29 | Outpatient (CLI) | payer MEDICAID, SELFPAY ==
[2022-10-01] MEDS: Barium Sulfate 2% W/V-Creamy Vanilla Smoothie 450 ML BTL PO (07:13)
--- NOTE | 2022-10-01 09:00 | DI.CT_ITS ---
Exam(s) CT ABDOMEN PELVIS WO EXAM: CT ABDOMEN PELVIS WO CLINICAL HISTORY: UMBILICAL HERNIA WO OBSTRUCTION AND WO GANGRENE, K42.9. TECHNIQUE: Imaging Protocol: Axial computed tomography images with coronal and sagittal reformatted images were created and reviewed. COMPARISON: No exams were available for comparison FINDINGS: ABDOMEN: Lung Bases: Moderate coronary artery calcification. Liver: Normal density. No measurable mass. Gallbladder and biliary tract: There is layering high density material in the gallbladder which may r epresent small stones versus sludge. There is no biliary ductal dilatation. Pancreas: There is calcification of a large portion of the body of the pancreas. No discrete mass is seen. Spleen: Normal. Kidneys: Normal size, contour and axis.No radiodense stones or obstructive uropathy. No masses seen. Adrenal glands: There is a 1.6 cm hypodense left adrenal nodule. Hounsfield units are -15. The find ings most suggestive of an adenoma. No follow-up is recommended. The right adrenal gland is unremar kable. Lymph nodes: Within normal limits. Abdominal Aorta: Abdominal portion non-dilated. Atherosclerosis is present. PELVIS: Bladder:Symmetric distention, no gross wall thickening. Bowel: No obstruction or bowel wall thickening. Appendix is unremarkable. Peritoneal cavity: No ascites, collection or mesenteric inflammatory response. No free air. Reproductive organs: Unremarkable as visualized. Bones: Within normal limits. Soft Tissues: There is a large fat containing anterior abdominal wall hernia to the right of midline. The hernia measures 10.8 transverse by 5.5 AP by 7.9 craniocaudad. The opening of the hernia is 2. 9 cm. The fat within the hernia is unremarkable. There are fat containing bilateral inguinal hernia . IMPRESSION: 1. Fat containing anterior abdominal wall hernia. The fat within the hernia is unremarkable. 2. Gallbladder sludge and/or stones. No biliary ductal dilatation. 3. 1.6 cm hypodense left adrenal nodule with Hounsfield units of -15. The finding is most suggestive of an adenoma. No follow-up is recommended. RADIATION DOSE DELIVERED: 1,652.87mGy.cm Total DLP DATA REPOSITORY: All CT scans at this facility are submitted to the National Radiology Data Registry (NRDR) Dose Index Registry (DIR) with the [employer] (ACR). RADIATION OPTIMIZATION: All CT scans at this facility use at least one of these dose optimization te chniques: automated exposure control; mA and/or kV adjustment per patient size (includes targeted exa ms where dose is matched to clinical indication); or iterative reconstruction.
== END 2022-10-01 00:49 ==
LOC: DI 00:29
PROVIDERS: PCP Nurse Practitioner Family; Visit Provider Surgery
DX: K42.9 Umbilical hernia without obstruction or gangrene (principal)
CPT/HCPCS: 74176

== ENCOUNTER 2023-02-11 10:03 | Day surgery (SDC) | payer MEDICAID, SELFPAY ==
--- NOTE | 2023-02-10 21:49 | W.COLOREPORT ---
Date of service: 02/11/23 Time of Service: 12:15 Colonoscopy Report Date of procedure: 02/11/23 Pre-op diagnosis general: Colon cancer screening Post-op diagnosis procedure note: other (Adenomatous polyps) Surgeon: Olya Richards Anesthesia Type: General:No Airway Estimated blood loss (mL): 1 Pathology: other Complications: None Disposition: same day Prep: Miralax/Dulcolax Procedure Description: After informed consent was obtained the patient was taken to the procedure room and placed in a left decubitous position. Monitors were applied and a time out was done. The patients name, date of , procedure, allergies to medications and metal in their body was reviewed. The patient was then sedated. Once sedated and comfortable a rectal exam was done. External exam-shows external hemorrhoids. Internal exam revealed a normal sphincter tone and no palpable masses. The prostate-not palpable The scope was then introduced and retrofelexed. No internal hemorrhoids were identified. The scope was then advanced to the cecum w/ difficulty. The colon Is extremely spasmodic and redundant. We did have to give glucagon to reach the cecum. The TI and appendiceal orifice were identified. The prep was BBPS 2 in all segments for total of 6. The scope was then slowly retracted over 11 minutes back into the rectum. No diverticula were visualized today. He had a flat 5 mm polyp at 20 cm that was removed with a cold biopsy forcep. All specimen is retrieved and no bleeding is noted. The mucosa is pink and healthy with a normal vascular pattern. The scope was removed and the patient was woken up and taken back to Same day surgery in stable condition. The patient tolerated the procedure well and there were no immediate complications. Follow up: The patient should follow up in 5-7 years unless they develop changes in bowel habits or other new gastrointestinal complaints.
--- NOTE | 2023-02-10 21:50 | PDOC.DSDIS_ITS ---
Date of service: 02/11/23 Time of Service: 12:23 Discharge Plan Disposition Patient Disposition: Home Condition: Good Discharge Details Attending Provider: Olya Richards Primary Care Provider: Emily Castro Home Meds and New Rx's Prescriptions: Continued multivitamin tablet 1 tab PO DAILY ascorbic acid (vitamin C) 500 mg capsule 500 mg PO DAILY cholecalciferol (vitamin D3) 2,000 unit capsule 2,000 unit PO DAILY (DME) FreeStyle Mirella 2 Sensor Kit See Rx Instructions .Route Qty: 6 3RF Rx Instructions: Continuous glucose monitor glipizide 10 mg tablet extended release 24hr 10 mg PO DAILY Qty: 90 3RF insulin glargine [Lantus U-100 Insulin] 100 unit/mL solution 80 unit subcut DAILY Qty: 6 4RF lisinopril 20 mg tablet 20 mg PO DAILY Qty: 90 3RF tadalafil 5 mg tablet 5 - 10 mg PO ONCE PRN (Reason: sexual activity) Qty: 180 0RF aspirin [Patrick Low Dose Aspirin] 81 MG tablet,delayed release (DR/EC) 1 tab PO DAILY Patient Comments: 04/03/13- Hasn't been taking since shoulder surgery (DME) insulin syringe-needle U-100 [BD Insulin Syringe Ultra-Fine] 1 mL 30 gauge x 1/2 syringe See Rx Instructions .Route Qty: 100 3RF Rx Instructions: Use for Lantus vials daily atorvastatin [Lipitor] 40 mg tablet 40 mg PO DAILY Qty: 90 3RF empagliflozin 25 mg tablet 25 mg PO DAILY Qty: 90 3RF (DME) FreeStyle Mirella 2 [place] Misc See Rx Instructions .Route Qty: 1 4RF Rx Instructions: Continuous glucose monitor gabapentin 100 mg capsule 100 - 200 mg PO TID Qty: 360 3RF Rx Instructions: 100mg morning and noon, 200mg at bedtime hydrochlorothiazide 25 mg tablet 25 mg PO QAM Qty: 90 3RF insulin aspart U-100 [Novolog FlexPen U-100 Insulin] 100 unit/mL (3 mL) insulin pen 15 - 20 unit subcut .ACHS Qty: 18 3RF Rx Instructions: 15-20 units three times a day, SSI with carb correction 5 Units at bedtime if FS>250. (DME) pen needle, diabetic 31 gauge x 5/16 needle 1 ea Sub-Q 8X/DAILY Qty: 400 3RF Rx Instructions: Use with insulin pen 3-4 times a day Discontinued bisacodyl [Dulcolax (bisacodyl)] 5 mg tablet,delayed release (DR/EC) 5 mg PO ONCE Qty: 4 0RF Rx Instructions: Colonoscopy Bowel Prep- Per Instructions polyethylene glycol 3350 17 gram/dose powder 238 g PO ONCE Qty: 238 0RF Rx Instructions: Colonoscopy Bowel Prep- Per Instructions Discharge Instructions Additional Instructions: DSU Colonoscopy Post- Op Instructions Instructions for Everyone who is given Anesthesia: For your safety, please do the following for the next twenty-four (24) hours: *Do Not operate a motor vehicle (car, truck, motorcycle, etc.) *Do Not drink alcoholic beverages or use any recreational drugs for the first 24 hours or while taking pain medications. The medications in your body may have a reaction that can be dangerous. *Do Not make any important decisions or sign any important papers. Findings: Colon polyps my office will send you a letter in 2 to 3 weeks time with the results of the biopsies and when we want you to repeat the colonoscopy. Follow up: My office will send you a letter in 2 to 3 weeks time with the results of the biopsies and when we want you to repeat the colonoscopy. 1. No lifting over 20 pounds or strenuous activity for the first 24 hours after your procedure. After 24 hours there are no restrictions on your activity but you may feel fatigued for a few days. 2. After you arrive home you may have a light meal and return to your normal d iet as you can tolerate it without feeling sick to your stomach. 3. You may have a bloated, gaseous feeling in your belly (abdomen) after a colonoscopy. Passing gas and belching will help. Walking or lying down on your left side with your knees flexed may relieve the discomfort. Call the office at [phone] (Office) or [phone] (Hospital) right away if you notice any of the following: a.Vomiting of blood or ?coffee ground stools?. b.Rectal bleeding 1Tbsp, blood clots or continuous bleeding. c.Severe belly (abdominal) pain. d.A hard distended belly (abdomen) and an inability to pass gas. 4. Please don?t expect to have a normal BM (bowel movement) for 2-3 days after your procedure. 5. If there are questions regarding the findings of your procedure, please contact your doctor 6. If you are unable to contact your doctor with a problem, contact the hospital at [phone]. 7. Continue all your regular medications unless directed otherwise. I understand the above instructions and have no questions. Signature of Patient or Adult Escort Name of Responsible Adult Escort Signature of Nurse Date/Time Activity:: See above Diet:: See above Discharge Orders Discharge Orders: Discharge Order (Routine); Ordered 02/11/23 Ordered By: Olya Richards DS: Diagnosis Discharge Diagnosis (1) Screening for malignant neoplasm of colon performed: Status: Acute Asessment and Plan: The patient is seen and examined after their colonoscopy.? The patient has been able to pass gas.? They are not having abdominal pain.? They have been able to tolerate liquids and a snack.? They do not have any nausea or vomiting.? They are not having any chest pain or shortness of breath.??? They are not having any rectal bleeding. Their vital signs have been stable-see nursing notes. We discussed findings during their colonoscopy, and any biopsies that were done/polyps that were removed. The patient will be sent a letter with any biopsy results, and when to repeat the colonoscopy.-see discharge instructions. Patient was given explicit instructions to follow-up regarding colonoscopy-refer to discharge instructions.? We reviewed resumption of medications. Patient verbalized understanding and discharged in stable and satisfactory condition- See nursing notes. (2) Type 2 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, with long-term current use of insulin: Status: Chronic (3) Diabetic peripheral neuropathy: Status: Chronic (4) Essential hypertension: Status: Chronic (5) Hyperlipidemia: Status: Chronic (6) Obesity (BMI 30-39.9): Status: Chronic (7) Umbilical hernia: Status: Chronic (8) Chronic osteomyelitis of toe of left foot: (9) Alcohol abuse: (10) Pancreatitis: (11) Polycythemia vera: (12) Adenomatous polyps: Status: Acute
[2023-02-11 10:41] VITALS: BP 154/80; PULSE 79; RESP 20; TEMP 37; O2SAT 97
[2023-02-11] MEDS: Lactated Ringers 1,000 ML 80 ML IV (11:00)
--- NOTE | 2023-02-11 11:04 | W.ANESPRE ---
General Info Date of Service Date Performed: 02/11/23 Height: 6 ft 1 in Weight: 121.6 kg Body Mass Index (BMI): 35.4 Surgical Procedure: Operation Date: 02/11/23 11:20 Proposed Procedure Side Surgeon pramod Richards, DO Meds Allergies and Home Medications Allergies Allergy/AdvReac Type Severity Reaction Status Date / Time metformin AdvReac Mild Diarrhea Verified 02/11/23 10:13 Home Medication Medication Instructions Recorded aspirin 81 mg tablet,delayed 1 tab PO DAILY 09/04/12 release (Patrick Low Dose Aspirin) ascorbic acid (vitamin C) 500 mg 500 mg PO DAILY 03/09/18 capsule cholecalciferol (vitamin D3) 50 2,000 unit PO DAILY 03/09/18 mcg (2,000 unit) capsule multivitamin 1 tab PO DAILY 03/09/18 lisinopril 20 mg tablet 20 mg PO DAILY #90 tabs 06/28/22 tadalafil 5 mg tablet 5 - 10 mg PO ONCE PRN sexual 06/28/22 activity #180 tabs atorvastatin 40 mg tablet (Lipitor) 40 mg PO DAILY #90 tabs 07/26/22 empagliflozin 25 mg tablet 25 mg PO DAILY #90 tabs 07/26/22 flash glucose scanning reader #1 ea 07/26/22 (FreeStyle Mirella 2 [place]) gabapentin 100 mg capsule 100 - 200 mg PO TID neuropathy 07/26/22 #360 caps hydrochlorothiazide 25 mg tablet 25 mg PO QAM #90 tabs 07/26/22 insulin aspart U-100 100 unit/mL 15 - 20 unit (0.15 - 0.2 mL) 07/26/22 (3 mL) subcutaneous pen (Novolog subcut .ACHS #18 SYRGS FlexPen U-100 Insulin aspart) insulin syringe-needle U-100 1 mL #100 ea 07/26/22 30 gauge x 1/2 (BD Insulin Syringe Ultra-Fine) pen needle, diabetic 31 gauge x #400 ea 07/26/22 5/16 flash glucose sensor (FreeStyle #6 ea 09/06/22 Mirella 2 Sensor kit) glipizide 10 mg tablet, extended 10 mg PO DAILY #90 tabs 09/06/22 release 24 hr insulin glargine 100 unit/mL 80 unit (0.8 mL) subcut DAILY #6 04/24/23 subcutaneous solution (Lantus vials U-100 Insulin) Current Visit Medications: Current Medications Generic Name Dose Route Start Last Admin Trade Name Freq PRN Reason Stop Dose Admin Hyoscyamine Sulfate 0.125 mg 02/11/23 04:25 Hyoscyamine 0.125 Mg Sl/Oral/Chew SL 03/13/23 04:24 DIRECTED PRN Ringer's Solution 1,000 mls @ 80 mls/hr 02/11/23 06:00 IV 02/11/23 23:59 [facility] IV Miscellaneous Supplies 1 each 02/11/23 06:00 Iv Access IV 02/11/23 23:59 DIRECTED ROSALVA Ondansetron HCl 4 mg 02/11/23 04:25 Ondansetron 4 Mg/2 Ml Vial IVP 03/13/23 04:24 Q4H PRN PRN Nausea / Vomiting Sodium Chloride 0 ml 02/11/23 06:00 Normal Saline Flush 10 Ml Syr IV 02/11/23 23:59 PRN PRN Sodium Chloride 0 ml 02/11/23 06:00 Normal Saline 10 Ml Vial IJ 02/11/23 23:59 DIRECTED PRN Sterile Water 0 ml 02/11/23 06:00 Water,Injection,Sterile 10 Ml Vial IJ 02/11/23 23:59 DIRECTED PRN PFSH Active Problems Active Problems: Problem Status Onset Code Screening for malignant neoplasm of colon performed Z12.11 Type 2 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, with long-term current use of insulin E11.311, Z79.4 Diabetic peripheral neuropathy E11.42 Essential hypertension I10 Hyperlipidemia E78.5 Obesity (BMI 30-39.9) E66.9 Umbilical hernia K42.9 Erectile dysfunction N52.9 Medical History Medical History Alcohol abuse Chronic osteomyelitis of toe of left foot Diabetic ulcer of left foot Pancreatitis Polycythemia vera Medical History Comments:: Sister/Dad with delayed emergence, brother PONV Surgical History Surgical History H/O umbilical hernia repair H/O ventral hernia repair (10/14/22) History of arthroscopy of knee S/P left knee arthroscopy S/P right rotator cuff repair Status post amputation of toe of left foot (02/17/18) Complete surgical amputation of 2nd left toe w/distal segment of 3rd & 4th toe amputations of left foot for osteomyelitis and dry gangrene 04/16/22: left 3-5 toe amputations and left foot diabetic ulcer debridement Status post left foot surgery (12/10/21) Partial 1st metatarsal resection Tobacco Smoking/Tobacco Use Status: Former Tobacco Use Passive smoking exposure: Yes Second hand exposure: Yes Alcohol Alcohol Intake: current Alcohol intake frequency: a few times a week Alcohol type: beer Substance Use Substance use: Rarely Substance use type: marijuana Counseling provided: none Details: alcohol t-2 marijuana > 1 year Vital Signs and Lab Results Vital Signs Most Recent Vital Signs in EMR: Most Recent Vital Signs Temp Pulse Resp BP Pulse Ox 37.0 C 79 20 154/80 H 97 02/11/23 10:41 02/11/23 10:41 02/11/23 10:41 02/11/23 10:41 02/11/23 10:41 Point of Care Results Point of Care Results: Finger Stick Blood Glucose 107 02/11/23 10:41 Lab Results Blood Type / Crossmatch: No Data to Display Complete Blood Count: No Data to Display Complete Metabolic Panel: No Data to Display Liver Function Panel: No Data to Display Coagulation Panel: No Data to Display Cardiac Panel: No Data to Display Arterial Blood Gas: No Data to Display Pancreas Panel: No Data to Display Thyroid Panel: No Data to Display Infectious Disease: No Data to Display Blood Cultures: No Data to Display Toxicology Panel: No Data to Display Anesthesia Assessment and Plan Anesthesia History Personal History: No History of Anesthesia Complications Family History: Other Exercise Tolerance Exercise Tolerance: Metabolic Equivalents>4 Pertinent Negatives Pertinent Negatives: No Symptoms of GERD, No Major Cardiovascular Symptoms or Complaints, No Major Pulmonary Symptoms or Complaints and No History of CVA/TIA Cardiac & Pulmonary Exam Cardiac Exam: Normal S1/S2 Heart Sounds Pulmonary Exam: Clear Bilateral Breath Sounds Implantable Cardiac Device Does patient have a Pacemaker or an ICD?: No Airway Exam Known Difficult Airway: No Mallampati Class: 3 Mouth Opening: Normal (> 3cm) Thyromental Distance: Greater than 3 cm Neck Range of Motion: Full ROM Neck Circumference: Normal Teeth Condition: Removable Dentures/Plates Upper, Removable Dentures/Plates Lower and Edentulous ASA Classification ASA Score: ASA 3 Emergency Case?: No NPO Status NPO Status: NPO Clears >2 hours, Solids >8 hours Anesthesia Plan Resuscitation Status: Full Code Anesthesia Technique: General Anesthesia Airway Planned: Natural Airway Monitors Used: Standard Monitors
[2023-02-11 11:07] VITALS: BMI 35.4
[2023-02-11] MEDS: Glucagon 1 MG VIAL (11:50)
--- NOTE | 2023-02-11 12:02 | BOWEL_PTH ---
PATIENT: Lena Kramer LOC: [facility] U#:[id number] AGE/SX: 57/M ROOM: RE02/11/[address]: Olya Richards : 1965 BED: DIS: 02/11/2023 SPEC #: [id number] RECD: 02/11/23 12:56 STATUS: GHANSHYAM REQ #: [id number] LAUREN: 02/11/23 12:[address]: Olya Richards DEPT: Surgical Specimen RECD BY: Federica Quick ENTERED: 02/11/23 12:57 SP TYPE: Bowel OTHR DR: VERA Jones Tissues: 1 - BIOPSY BOWEL Procedures: GROSS AND MICRO LEVEL 4 Comments: [id number]
[2023-02-11 12:12] VITALS: BP 115/70; PULSE 77; RESP 16; TEMP 36.8; O2SAT 96
[2023-02-11 12:40] VITALS: BP 141/74; PULSE 71; RESP 18; TEMP 36.8; O2SAT 96
--- NOTE | 2023-02-11 12:47 | W.ANESPOSTOP ---
Postoperative Evaluation Date, Time and Location Date Performed: 02/11/23 Time Performed: 12:22 Patient Location: Day Surgery Unit Vital Signs Most Recent Imported Vital Signs: Most Recent Vital Signs Temp Pulse Resp BP Pulse Ox 36.8 C 77 16 115/70 96 02/11/23 12:12 02/11/23 12:12 02/11/23 12:12 02/11/23 12:12 02/11/23 12:12 Pain Score Most Recent Pain Score: Most Recent Pain Score Pain Level 0 02/11/23 12:12 Assessment Mental Status: Awake (Alert & Oriented to Patient Baseline) Airway and Respiratory Function: Patent airway with normal (patient baseline) respiratory exam Cardiovascular Function: Hemodynamically Stable Hydration Status: Adequately Hydrated Nausea & Vomiting: No Nausea or Vomiting Pain: Pt. Denies Any Pain Peripheral Nerve Block: Patient did not receive a nerve block
== END 2023-02-11 13:10 | disposition home or self-care (01) ==
PROVIDERS: PCP Nurse Practitioner Family; Visit Provider Surgery
PROC: 0DJD8ZZ Inspection of Lower Intestinal Tract, Via Natural or Artificial Opening Endoscopic (ICD-10-PCS; CPT 45378; principal; 2023-02-11 11:15)
DX: Z12.11 Encounter for screening for malignant neoplasm of colon (principal); K64.4 Residual hemorrhoidal skin tags; K63.5 Polyp of colon; Z79.4 Long term (current) use of insulin; E11.42 Type 2 diabetes mellitus with diabetic polyneuropathy; E78.5 Hyperlipidemia, unspecified; E66.9 Obesity, unspecified; Z68.35 Body mass index [BMI] 35.0-35.9, adult
CPT/HCPCS: 45380; 88305; J1610; J2001

== ENCOUNTER 2023-02-17 08:05 | Outpatient (CLI) | payer MEDICAID, SELFPAY ==
[2023-02-17 12:56] LABS: Abs Immature Grans 0.02 10^3/uL (0.0-0.06); Absolute Basophil Count 0.03 10^3/uL (0.0-0.2); Absolute Eosinophil Count 0.18 10^3/uL (0.0-0.7); Absolute Lymphocyte Count 1.32 10^3/uL (1.2-3.4); Absolute Monocyte Count 0.55 10^3/uL (0.1-0.8); Absolute Neutrophil Count 3.73 10^3/uL (1.2-6.7); Basophils % 0.5; Eosinophils % 3.1; HCT 42.4 % (40.0-50.0); HGB 14.5 g/dL (13.5-17.5); Immature Grans % 0.3; Lymphocytes % 22.6; MCH 30.5 pg (27.0-33.0); MCHC 34.2 % (32.0-36.0); MCV 89 fL (80-95); MPV 10.2 fL (8.0-11.0); Monocytes % 9.4; Neutrophils % 64.1; Platelet Count 165 10^3/uL (130-400); RBC 4.75 10^6/uL (4.36-5.78); RDW 12.9 % (11.8-14.1); RDW-SD 42.4 fL; WBC 5.83 10^3/uL (4.4-10.8)
[2023-02-17 13:34] LABS: Anion Gap 6.4 mmol/L (3-11); CO2 28.6 mmol/L (21.0-32.0); Chloride 101 mmol/L (98-107); Potassium 3.9 mmol/L (3.5-5.1); Sodium 136 mmol/L (136-145)
[2023-02-17 14:01] LABS: ALT 14 U/L (16-63); AST 15 U/L (15-37); Alkaline Phosphatase 155 U/L (46-116); BUN 15 mg/dL (7-18); Bilirubin, Total 0.3 mg/dL (0.2-1.0); CREATININE 0.8 mg/dL (0.70-1.30); Calcium 9.3 mg/dL (8.5-10.1); Estimated GFR 104.51 (mL/min/1.73m2); Glucose 252 mg/dL (74-106); Total Protein 6.6 g/dL (6.4-8.2)
[2023-02-17 21:22] LABS: Lab Add On Test DONE
[2023-02-17 21:39] LABS: GGT 21 U/L (15-85)
[2023-02-18 20:11] LABS: PSA, Screening 0.3 ng/mL (<=3.5)
[2023-02-21 09:57] LABS: Hepatitis C Ab w Rflx HCV PCR Negative (Negative)
== END 2023-02-17 08:06 | disposition home or self-care (01) ==
LOC: LOS 08:06
PROVIDERS: PCP Nurse Practitioner Family; Referring Provider Nurse Practitioner Family; Visit Provider Nurse Practitioner Family
DX: Z01.818 Encounter for other preprocedural examination (principal); Z11.59 Encounter for screening for other viral diseases; Z12.5 Encounter for screening for malignant neoplasm of prostate
CPT/HCPCS: 36415; 80053; 84153; 86803; 82977; 85025

== ENCOUNTER 2023-09-23 13:50 | Outpatient (REF) | payer SELFPAY ==
[2023-09-23 21:17] LABS: COMMENT (LAB VIEW ONLY) 92.33 mg/dL
== END 2023-09-23 13:51 | disposition home or self-care (01) ==
LOC: LBN 13:50
PROVIDERS: PCP Nurse Practitioner Family; Visit Provider Nurse Practitioner Family
DX: E11.9 Type 2 diabetes mellitus without complications (principal)
CPT/HCPCS: 82043; 82570

== ENCOUNTER 2023-12-30 07:55 | Outpatient (CLI) | payer MEDICAID, SELFPAY ==
[2023-12-30 13:27] LABS: Hemoglobin A1C 8.3 % (<5.7)
[2023-12-30 13:51] LABS: ALT 26 U/L (16-63); AST 20 U/L (15-37); Albumin 3.2 g/dL (3.4-5.0); Alkaline Phosphatase 136 U/L (46-116); Anion Gap 9.3 mmol/L (3-11); BUN 22 mg/dL (7-18); Bilirubin, Total 0.56 mg/dL (0.2-1.0); CO2 27.7 mmol/L (21.0-32.0); CREATININE 0.7 mg/dL (0.70-1.30); Calcium 8.7 mg/dL (8.5-10.1); Chloride 102 mmol/L (98-107); Estimated GFR 108.14 (mL/min/1.73m2); Glucose 148 mg/dL (74-106); Potassium 4.5 mmol/L (3.5-5.1); Sodium 139 mmol/L (136-145); Total Protein 6.6 g/dL (6.4-8.2)
[2024-01-01 13:00] LABS: HIV-1/2 Ag & Ab Screen Negative (Negative)
[2024-01-02 13:07] LABS: HBs Antibody, Quant <3.1 mIU/mL (See Note); Hep B Surface Ab Negative (See Note); Hepatitis B Core Antibody Negative (Negative); Hepatitis B Surface Antigen Negative (Negative)
== END 2023-12-30 07:56 | disposition home or self-care (01) ==
PROVIDERS: PCP Nurse Practitioner Family; Visit Provider Nurse Practitioner Family
DX: Z11.4 Encounter for screening for human immunodeficiency virus [HIV] (principal); Z00.00 Encounter for general adult medical examination without abnormal findings; Z11.59 Encounter for screening for other viral diseases; E11.9 Type 2 diabetes mellitus without complications; E11.311 Type 2 diabetes mellitus with unspecified diabetic retinopathy with macular edema; Z79.4 Long term (current) use of insulin; I10 Essential (primary) hypertension
CPT/HCPCS: 36415; 80053; 86704; 86706; 87340; 87389; 83036

== ENCOUNTER 2024-08-16 13:20 | Outpatient (CLI) | payer MEDICAID, SELFPAY ==
--- NOTE | 2024-08-16 13:15 | RT.EKG_ITS ---
APPROVED REPORT Exam: Resting ECG Reason for Exam: pre op Patient Location: O HR:95 bpm ECG Measurements Heart Rate 95 AXIS ND 180 P 36 QRSd 98 QRS -1 QT 370 T 33 QTc 465 Conclusion Sinus rhythm...normal P axis, V-rate 50- 99 Probable left atrial enlargement...P >50mS, <-0.10mV V1 Otherwise normal ECG
== END 2024-08-16 13:21 | disposition home or self-care (01) ==
LOC: DI.CM 13:20
PROVIDERS: PCP Nurse Practitioner Family; Visit Provider Nurse Practitioner Family
DX: Z01.818 Encounter for other preprocedural examination (principal)
CPT/HCPCS: 93010

== ENCOUNTER 2025-02-15 08:07 | Outpatient (CLI) | payer MEDICAID, SELFPAY ==
[2025-02-15 14:05] LABS: HCT 43.3 % (40.0-50.0); HGB 14.9 g/dL (13.5-17.5); MCH 30.0 pg (27.0-33.0); MCHC 34.4 % (32.0-36.0); MCV 87 fL (80-95); MPV 10.8 fL (8.0-11.0); Platelet Count 166 10^3/uL (130-400); RBC 4.96 10^6/uL (4.36-5.78); RDW 13.1 % (11.8-14.1); RDW-SD 41.3 fL; WBC 6.22 10^3/uL (4.4-10.8)
[2025-02-15 14:34] LABS: ALT 13 U/L (16-63); AST 15 U/L (15-37); Albumin 3.2 g/dL (3.4-5.0); Alkaline Phosphatase 125 U/L (46-116); Anion Gap 9.5 mmol/L (3-11); BUN 34 mg/dL (7-18); Bilirubin, Total 0.8 mg/dL (0.2-1.0); CO2 28.5 mmol/L (21.0-32.0); Calcium 9.0 mg/dL (8.5-10.1); Calculated LDL 126 mg/dL (<100); Chloride 98 mmol/L (98-107); Cholesterol 236 mg/dL (<200); Estimated GFR 103.22 (mL/min/1.73m2); Glucose 210 mg/dL (74-106); HDL Cholesterol 48 mg/dL (>or=40); Potassium 4.3 mmol/L (3.5-5.1); Sodium 136 mmol/L (136-145); Total Protein 7.0 g/dL (6.4-8.2); Triglyceride 314 mg/dL (<150)
[2025-02-15 22:40] LABS: PSA, Screening 0.8 ng/mL (<=3.5)
== END 2025-02-15 08:08 | disposition home or self-care (01) ==
PROVIDERS: PCP Nurse Practitioner Family; Visit Provider Nurse Practitioner Family
DX: E11.311 Type 2 diabetes mellitus with unspecified diabetic retinopathy with macular edema (principal); Z79.4 Long term (current) use of insulin; Z12.5 Encounter for screening for malignant neoplasm of prostate; I10 Essential (primary) hypertension
CPT/HCPCS: 36415; 80053; 80061; 84153; 85027; 82043; 82570

== ENCOUNTER 2025-02-15 15:28 | Outpatient (REF) | payer MEDICAID, SELFPAY ==
[2025-02-15 15:04] LABS: COMMENT (LAB VIEW ONLY) 39.78 mg/dL; Microalb ug/mg Crea 1700.4 ug/mg Cr
== END 2025-02-15 15:29 | disposition home or self-care (01) ==
LOC: LBN 15:28
PROVIDERS: PCP Nurse Practitioner Family; Visit Provider Nurse Practitioner Family
DX: E11.9 Type 2 diabetes mellitus without complications (principal)
CPT/HCPCS: 82043; 82570